=== PATIENT | male | born 1950 | race Two or more races ===

== ENCOUNTER 2017-05-22 23:45 | Inpatient (IN) | payer OTHER ==
[2017-05-23 04:53] LABS: ADD MAN DIFF? NO
[2017-05-23 04:55] LABS: BASOPHILS % 0.5 % (0.0-2.0); EOSINOPHILS # 0.1 10^3/ul (0.0-0.5); EOSINOPHILS % 0.6 % (0.0-7.0); HEMATOCRIT 43.5 % (42.0-52.0); HEMOGLOBIN 14.2 g/dl (14.0-18.0); LYMPHOCYTES % 23.7 % (15.0-51.0); MEAN CORPUSCULAR HEMOGLOBIN 29.8 pg (29.0-33.0); MEAN CORPUSCULAR HGB CONC 32.6 g/dl (32.0-37.0); MEAN CORPUSCULAR VOLUME 91.2 fl (82.0-101.0); MEAN PLATELET VOLUME 11.8 fl (7.4-10.4); MONOCYTE # 0.7 10^3/ul (0.3-0.9); MONOCYTES % 8.8 % (0.0-11.0); NEUTROPHIL # 5.5 10^3/ul (1.6-7.5); NEUTROPHILS % 66.2 % (39.0-77.0); PLATELET COUNT 211 10^3/UL (140-415); RED BLOOD COUNT 4.77 10^6/ul (4.70-6.10)
[2017-05-23 04:55] LABS: WHITE BLOOD COUNT 8.3 10^3/ul (4.8-10.8)
[2017-05-23 05:16] LABS: ALANINE AMINOTRANSFERASE 141 IU/L (13-69); ALBUMIN 4.8 g/dl (3.3-4.9); ALBUMIN/GLOBULIN RATIO 1.17; ALKALINE PHOSPHATASE 215 IU/L (42-121); ANION GAP 18 (8-16); ASPARTATE AMINO TRANSFERASE 152 IU/L (15-46); BILIRUBIN,INDIRECT 0.6 mg/dl (0-1.1); BILIRUBIN,TOTAL 0.6 mg/dl (0.2-1.3); BLOOD UREA NITROGEN 31 mg/dl (7-20); CALCIUM 10.7 mg/dl (8.4-10.2); CARBON DIOXIDE 30 mmol/L (21-31); CHLORIDE 95 mmol/L (97-110); CREATININE 1.36 mg/dl (0.61-1.24); GLUCOSE 125 mg/dl (70-220); LIPASE 157 U/L (23-300); POTASSIUM 4.4 mmol/L (3.5-5.1); SODIUM 139 mmol/L (135-144); TOTAL PROTEIN 8.9 g/dl (6.1-8.1); UR AMORPHOUS CRYSTAL FEW /HPF (NONE SEEN); UR MUCUS FEW /HPF (NONE SEEN); UR RBC 1 /HPF (0-5); UR WBC 5 /HPF (0-5)
[2017-05-23 05:17] LABS: ADD UMIC YES; UR ASCORBIC ACID NEGATIVE (NEGATIVE); UR BILIRUBIN (Dip) NEGATIVE (NEGATIVE); UR BLOOD (Dip) 1+ mg/dL (NEGATIVE); UR CLARITY SLIGHTLY CLOUDY (CLEAR); UR COLOR YELLOW (YELLOW); UR GLUCOSE (Dip) NEGATIVE (NEGATIVE); UR KETONES (Dip) NEGATIVE (NEGATIVE); UR LEUKOCYTE ESTERASE (Dip) TRACE Leu/ul (NEGATIVE); UR NITRITE (Dip) NEGATIVE (NEGATIVE); UR SPECIFIC GRAVITY (Dip) 1.013 (1.003-1.030); UR TOTAL PROTEIN (Dip) NEGATIVE (NEGATIVE); UR UROBILINOGEN (Dip) NEGATIVE (NEGATIVE)
[2017-05-23 05:35] LABS: TROPONIN-I < 0.012 ng/ml (0.00-0.12)
[2017-05-23] MEDS: SOD CHLORIDE 0.9% 1,000 ML IV ×2 (08:39→19:55)
[2017-05-23] MEDS: PIPER-TAZO 3.375 GM IV (PMX) 100 ML IVPB (08:40)
[2017-05-23 09:16] LABS: HAAIG REFLEX REFLEX FILED
[2017-05-23 13:56] LABS: HEPATITIS B CORE ANTIBODY NEGATIVE (NEGATIVE); HEPATITIS C VIRAL ANTIBODY NEGATIVE (NEGATIVE)
[2017-05-23 14:35] LABS: HEPATITIS B SURFACE ANTIGEN NEGATIVE (NEGATIVE)
[2017-05-23] MEDS: CIPROFLOXACIN 400MG/D5W 200 ML IVPB (20:36)
[2017-05-23] MEDS: DOCUSATE SODIUM 100 MG CAP PO (20:36)
[2017-05-23] MEDS: metroNIDAZOLE 500 MG/NS (PMX) 100 ML IVPB (21:41)
[2017-05-23] MEDS ORDERED: PIPER-TAZO 2.25 GM (PMX) 50 ML IVPB (22:00)
[2017-05-23 22:43] LABS: PROSTATE SPECIFIC ANTIGEN 0.2 ng/ml (0.0-4.0)
[2017-05-24] MEDS: SOD CHLORIDE 0.9% 1,000 ML IV ×2 (04:56→15:19)
[2017-05-24 05:02] LABS: ADD MAN DIFF? NO
[2017-05-24 05:12] LABS: WHITE BLOOD COUNT 6.2 10^3/ul (4.8-10.8)
[2017-05-24 05:12] LABS: BASOPHIL # 0.1 10^3/ul (0.0-0.1); EOSINOPHILS # 0.2 10^3/ul (0.0-0.5); EOSINOPHILS % 2.4 % (0.0-7.0); HEMATOCRIT 35.8 % (42.0-52.0); LYMPHOCYTES # 1.4 10^3/ul (0.8-2.9); LYMPHOCYTES % 22.2 % (15.0-51.0); MEAN CORPUSCULAR HEMOGLOBIN 30.5 pg (29.0-33.0); MEAN CORPUSCULAR HGB CONC 33.5 g/dl (32.0-37.0); MEAN CORPUSCULAR VOLUME 91.1 fl (82.0-101.0); MEAN PLATELET VOLUME 11.3 fl (7.4-10.4); MONOCYTE # 0.7 10^3/ul (0.3-0.9); MONOCYTES % 11.6 % (0.0-11.0); NEUTROPHIL # 3.9 10^3/ul (1.6-7.5); NEUTROPHILS % 62.6 % (39.0-77.0); PLATELET COUNT 159 10^3/UL (140-415); RED BLOOD COUNT 3.93 10^6/ul (4.70-6.10); RED CELL DISTRIBUTION WIDTH 11.9 % (11.5-14.5)
[2017-05-24 05:34] LABS: LACTIC ACID 1.2 mmol/L (0.5-2.0)
[2017-05-24 05:35] LABS: PHOSPHORUS 4.3 mg/dl (2.5-4.9)
[2017-05-24 05:38] LABS: ALANINE AMINOTRANSFERASE 99 IU/L (13-69); ALBUMIN 3.6 g/dl (3.3-4.9); ALKALINE PHOSPHATASE 162 IU/L (42-121); ANION GAP 13 (8-16); ASPARTATE AMINO TRANSFERASE 108 IU/L (15-46); BILIRUBIN,INDIRECT 0.5 mg/dl (0-1.1); BILIRUBIN,TOTAL 0.5 mg/dl (0.2-1.3); BLOOD UREA NITROGEN 27 mg/dl (7-20); CALCIUM 9.3 mg/dl (8.4-10.2); CARBON DIOXIDE 28 mmol/L (21-31); CHLORIDE 101 mmol/L (97-110); GLUCOSE 119 mg/dl (70-220); POTASSIUM 4.9 mmol/L (3.5-5.1); SODIUM 137 mmol/L (135-144); TOTAL PROTEIN 6.6 g/dl (6.1-8.1)
[2017-05-24] MEDS: metroNIDAZOLE 500 MG/NS (PMX) 100 ML IVPB ×3 (05:56→22:25)
[2017-05-24] MEDS: DOCUSATE SODIUM 100 MG CAP PO (10:41)
[2017-05-24] MEDS: POLYETHYLENE GLYCOL 17 GM PACKET PO (10:42)
[2017-05-24] MEDS: CIPROFLOXACIN 400MG/D5W 200 ML IVPB ×2 (10:42→21:06)
[2017-05-24] MEDS ORDERED: NA PHOSPHATE/BIPHOS 133 ML ENEMA PR (14:30)
[2017-05-24] MEDS: LACTULOSE 30ML CUP PO ×2 (16:34→21:07)
[2017-05-25] MEDS: LACTULOSE 30ML CUP PO ×4 (01:15→13:00)
[2017-05-25] MEDS: SOD CHLORIDE 0.9% 1,000 ML IV ×2 (01:16→12:01)
[2017-05-25] MEDS: metroNIDAZOLE 500 MG/NS (PMX) 100 ML IVPB ×3 (05:31→22:12)
[2017-05-25 06:23] LABS: ADD MAN DIFF? NO
[2017-05-25 06:29] LABS: BASOPHILS % 0.5 % (0.0-2.0); EOSINOPHILS # 0.1 10^3/ul (0.0-0.5); EOSINOPHILS % 1.8 % (0.0-7.0); HEMOGLOBIN 11.8 g/dl (14.0-18.0); LYMPHOCYTES # 1.6 10^3/ul (0.8-2.9); LYMPHOCYTES % 26.2 % (15.0-51.0); MEAN CORPUSCULAR HEMOGLOBIN 30.1 pg (29.0-33.0); MEAN CORPUSCULAR HGB CONC 32.8 g/dl (32.0-37.0); MEAN CORPUSCULAR VOLUME 91.8 fl (82.0-101.0); MEAN PLATELET VOLUME 12.2 fl (7.4-10.4); MONOCYTE # 0.7 10^3/ul (0.3-0.9); MONOCYTES % 11.5 % (0.0-11.0); NEUTROPHIL # 3.6 10^3/ul (1.6-7.5); NEUTROPHILS % 59.7 % (39.0-77.0); PLATELET COUNT 155 10^3/UL (140-415); RED BLOOD COUNT 3.92 10^6/ul (4.70-6.10); RED CELL DISTRIBUTION WIDTH 12.1 % (11.5-14.5)
[2017-05-25 06:29] LABS: WHITE BLOOD COUNT 6.1 10^3/ul (4.8-10.8)
[2017-05-25 07:01] LABS: ALANINE AMINOTRANSFERASE 104 IU/L (13-69); ALBUMIN 3.5 g/dl (3.3-4.9); ALKALINE PHOSPHATASE 175 IU/L (42-121); ANION GAP 13 (8-16); ASPARTATE AMINO TRANSFERASE 115 IU/L (15-46); BILIRUBIN,INDIRECT 0.4 mg/dl (0-1.1); BILIRUBIN,TOTAL 0.4 mg/dl (0.2-1.3); BLOOD UREA NITROGEN 23 mg/dl (7-20); CALCIUM 9.3 mg/dl (8.4-10.2); CARBON DIOXIDE 26 mmol/L (21-31); CHLORIDE 103 mmol/L (97-110); GLUCOSE 135 mg/dl (70-220); POTASSIUM 4.2 mmol/L (3.5-5.1); SODIUM 138 mmol/L (135-144); TOTAL PROTEIN 6.4 g/dl (6.1-8.1)
[2017-05-25] MEDS: DOCUSATE SODIUM 100 MG CAP PO (09:15)
[2017-05-25] MEDS: CIPROFLOXACIN 400MG/D5W 200 ML IVPB ×2 (09:15→21:00)
[2017-05-25] MEDS: POLYETHYLENE GLYCOL 17 GM PACKET PO (09:15)
[2017-05-25] MEDS: IOHEXOL 14.3 MG(I)/ML (ADULT) BTL PO (14:00)
[2017-05-25] MEDS: BISACODYL (EC) 5 MG TAB PO (15:07)
[2017-05-25] MEDS: IOHEXOL 300MG/ML 150 ML BTL (17:32)
[2017-05-25] MEDS: SOD CHLORIDE 0.9% 100 ML (17:32)
[2017-05-25] MEDS: POLYETHYLENE GLYCOL 3350 119 GM POWDER PO (20:49)
[2017-05-25] MEDS: MAGNESIUM CITRATE 300 ML BTL PO (20:49)
[2017-05-25] MEDS: TAMSULOSIN (SR) 0.4 MG CAP PO (20:59)
[2017-05-25] MEDS: LATANOPROST 0.005% 2.5 ML OPH BOTH EYES (21:00)
[2017-05-26] MEDS: SOD CHLORIDE 0.9% 1,000 ML IV ×3 (01:26→11:29)
[2017-05-26] MEDS: metroNIDAZOLE 500 MG/NS (PMX) 100 ML IVPB ×3 (06:17→22:22)
[2017-05-26 06:27] LABS: ADD MAN DIFF? NO
[2017-05-26 06:30] LABS: WHITE BLOOD COUNT 6.1 10^3/ul (4.8-10.8)
[2017-05-26 06:30] LABS: BASOPHILS % 0.5 % (0.0-2.0); EOSINOPHILS # 0.1 10^3/ul (0.0-0.5); EOSINOPHILS % 1.5 % (0.0-7.0); HEMATOCRIT 35.9 % (42.0-52.0); HEMOGLOBIN 11.9 g/dl (14.0-18.0); LYMPHOCYTES # 1.2 10^3/ul (0.8-2.9); MEAN CORPUSCULAR HEMOGLOBIN 30.4 pg (29.0-33.0); MEAN CORPUSCULAR HGB CONC 33.1 g/dl (32.0-37.0); MEAN CORPUSCULAR VOLUME 91.6 fl (82.0-101.0); MEAN PLATELET VOLUME 12.4 fl (7.4-10.4); MONOCYTE # 0.6 10^3/ul (0.3-0.9); MONOCYTES % 9.4 % (0.0-11.0); NEUTROPHIL # 4.2 10^3/ul (1.6-7.5); NEUTROPHILS % 69.3 % (39.0-77.0); PLATELET COUNT 163 10^3/UL (140-415); RED BLOOD COUNT 3.92 10^6/ul (4.70-6.10); RED CELL DISTRIBUTION WIDTH 12.3 % (11.5-14.5)
[2017-05-26] MEDS: DOCUSATE SODIUM 100 MG CAP PO (08:47)
[2017-05-26] MEDS: CIPROFLOXACIN 400MG/D5W 200 ML IVPB ×2 (08:47→20:39)
[2017-05-26] MEDS: POLYETHYLENE GLYCOL 17 GM PACKET PO (08:47)
[2017-05-26] MEDS: ONDANSETRON 4 MG INJ IV ×2 (09:26→18:45)
[2017-05-26] MEDS: FAMOTIDINE 20 MG INJ IV ×2 (09:26→20:39)
[2017-05-26] MEDS: CALCIUM CARBONATE 500 MG CHEW TAB PO ×2 (12:40→17:20)
[2017-05-26] MEDS: POLYETHYLENE GLYCOL 3350 119 GM POWDER PO (17:20)
[2017-05-26] MEDS: BISACODYL (EC) 5 MG TAB PO (17:20)
[2017-05-26] MEDS: ACETAMINOPHEN 325 MG TAB PO (20:38)
[2017-05-26] MEDS: [UNRECOGNIZED DRUG - OTHER] BOTH EYES (20:38)
[2017-05-26] MEDS: TAMSULOSIN (SR) 0.4 MG CAP PO (20:38)
[2017-05-27] MEDS: SOD CHLORIDE 0.9% 1,000 ML IV ×2 (00:37→13:23)
[2017-05-27 05:36] LABS: ADD MAN DIFF? NO
[2017-05-27 05:37] LABS: ABNORMAL IP MESSAGE 1; BASOPHILS % 0.4 % (0.0-2.0); EOSINOPHILS % 0.4 % (0.0-7.0); HEMATOCRIT 33.8 % (42.0-52.0); HEMOGLOBIN 11.3 g/dl (14.0-18.0); LYMPHOCYTES # 0.5 10^3/ul (0.8-2.9); MEAN CORPUSCULAR HEMOGLOBIN 30.2 pg (29.0-33.0); MEAN CORPUSCULAR HGB CONC 33.4 g/dl (32.0-37.0); MEAN CORPUSCULAR VOLUME 90.4 fl (82.0-101.0); MEAN PLATELET VOLUME 12.3 fl (7.4-10.4); MONOCYTE # 0.5 10^3/ul (0.3-0.9); MONOCYTES % 11.4 % (0.0-11.0); NEUTROPHIL # 3.5 10^3/ul (1.6-7.5); NEUTROPHILS % 76.4 % (39.0-77.0); PLATELET COUNT 146 10^3/UL (140-415); POSITIVE DIFF @See below; RED BLOOD COUNT 3.74 10^6/ul (4.70-6.10); RED CELL DISTRIBUTION WIDTH 12.5 % (11.5-14.5)
[2017-05-27 05:37] LABS: WHITE BLOOD COUNT 4.6 10^3/ul (4.8-10.8)
[2017-05-27] MEDS: metroNIDAZOLE 500 MG/NS (PMX) 100 ML IVPB ×3 (06:07→21:35)
[2017-05-27 06:09] LABS: ANION GAP 13 (8-16); BLOOD UREA NITROGEN 11 mg/dl (7-20); CARBON DIOXIDE 24 mmol/L (21-31); CHLORIDE 104 mmol/L (97-110); CREATININE 1.15 mg/dl (0.61-1.24); GLUCOSE 136 mg/dl (70-220); MAGNESIUM 1.6 mg/dl (1.7-2.5); POTASSIUM 3.9 mmol/L (3.5-5.1); SODIUM 137 mmol/L (135-144)
[2017-05-27] MEDS: DOCUSATE SODIUM 100 MG CAP PO (08:07)
[2017-05-27] MEDS: FAMOTIDINE 20 MG INJ IV ×2 (08:07→21:33)
[2017-05-27] MEDS: POLYETHYLENE GLYCOL 17 GM PACKET PO (08:07)
[2017-05-27] MEDS: CIPROFLOXACIN 400MG/D5W 200 ML IVPB ×2 (08:12→21:34)
[2017-05-27] MEDS: ONDANSETRON 4 MG INJ IV ×2 (08:25→15:52)
[2017-05-27] MEDS: CALCIUM CARBONATE 500 MG CHEW TAB PO ×3 (09:26→18:55)
[2017-05-27] MEDS: [UNRECOGNIZED DRUG - OTHER] BOTH EYES ×2 (09:28→21:33)
[2017-05-27] MEDS: MAGNESIUM SULFATE 2 GM/50 ML 50 ML IVPB (13:11)
[2017-05-27] MEDS ORDERED: ONDANSETRON 4 MG INJ IV (19:00)
[2017-05-27] MEDS ORDERED: FENTAnyl 50 MCG/ML VIAL IV ×3 (19:00)
[2017-05-27] MEDS ORDERED: LABETALOL HCL 20MG INJ IV (19:00)
[2017-05-27] MEDS ORDERED: MIDAZOLAM 1 MG/ML 2 ML INJ IV (19:00)
[2017-05-27] MEDS ORDERED: METOCLOPRAMIDE 10 MG INJ IV (19:00)
[2017-05-27] MEDS ORDERED: DIPHENHYDRAMINE 50 MG INJ IV (19:00)
[2017-05-27] MEDS ORDERED: OXYCODONE/ACETAMINOPHEN (5/325) TAB PO ×2 (19:00)
[2017-05-27] MEDS ORDERED: MEPERIDINE 25 MG INJ IV (19:00)
[2017-05-27] MEDS ORDERED: hydrALAzine 20 MG INJ IV (19:00)
[2017-05-27] MEDS ORDERED: EPHEDrine SULFATE 50 MG/5 ML SYG IV (19:00)
[2017-05-27] MEDS: TAMSULOSIN (SR) 0.4 MG CAP PO (21:34)
[2017-05-27] MEDS: PROPOFOL 20 ML (23:12)
[2017-05-28] MEDS: SOD CHLORIDE 0.9% 1,000 ML IV ×2 (03:00→13:00)
[2017-05-28] MEDS: metroNIDAZOLE 500 MG/NS (PMX) 100 ML IVPB (05:40)
[2017-05-28 05:44] LABS: ADD MAN DIFF? NO
[2017-05-28 05:59] LABS: BASOPHILS % 0.4 % (0.0-2.0); EOSINOPHILS % 0.4 % (0.0-7.0); HEMATOCRIT 32.6 % (42.0-52.0); HEMOGLOBIN 10.9 g/dl (14.0-18.0); LYMPHOCYTES # 1.1 10^3/ul (0.8-2.9); LYMPHOCYTES % 23.3 % (15.0-51.0); MEAN CORPUSCULAR HEMOGLOBIN 30.3 pg (29.0-33.0); MEAN CORPUSCULAR HGB CONC 33.4 g/dl (32.0-37.0); MEAN CORPUSCULAR VOLUME 90.6 fl (82.0-101.0); MEAN PLATELET VOLUME 12.5 fl (7.4-10.4); MONOCYTE # 0.8 10^3/ul (0.3-0.9); MONOCYTES % 15.8 % (0.0-11.0); NEUTROPHIL # 2.9 10^3/ul (1.6-7.5); NEUTROPHILS % 59.7 % (39.0-77.0); PLATELET COUNT 143 10^3/UL (140-415); RED CELL DISTRIBUTION WIDTH 12.5 % (11.5-14.5)
[2017-05-28 05:59] LABS: WHITE BLOOD COUNT 4.9 10^3/ul (4.8-10.8)
[2017-05-28 06:32] LABS: ANION GAP 10 (8-16); BLOOD UREA NITROGEN 11 mg/dl (7-20); CALCIUM 8.6 mg/dl (8.4-10.2); CARBON DIOXIDE 27 mmol/L (21-31); CHLORIDE 103 mmol/L (97-110); CREATININE 1.21 mg/dl (0.61-1.24); GLUCOSE 124 mg/dl (70-220); POTASSIUM 3.9 mmol/L (3.5-5.1); SODIUM 136 mmol/L (135-144)
[2017-05-28 06:41] LABS: MAGNESIUM 1.9 mg/dl (1.7-2.5)
[2017-05-28] MEDS: DOCUSATE SODIUM 100 MG CAP PO (08:33)
[2017-05-28] MEDS: CIPROFLOXACIN 400MG/D5W 200 ML IVPB (08:33)
[2017-05-28] MEDS: POLYETHYLENE GLYCOL 17 GM PACKET PO (08:34)
[2017-05-28] MEDS: FAMOTIDINE 20 MG INJ IV ×2 (08:34→20:36)
[2017-05-28] MEDS: ONDANSETRON 4 MG INJ IV (08:34)
[2017-05-28] MEDS: GUAIFENESIN/DM 5ML CUP PO ×3 (09:24→20:35)
[2017-05-28] MEDS: CALCIUM CARBONATE 500 MG CHEW TAB PO ×3 (09:24→18:09)
[2017-05-28] MEDS: SENNA TAB PO ×2 (12:39→20:35)
[2017-05-28 13:33] LABS: ANA SCREEN NEGATIVE (NEGATIVE); MITOCHONDRIAL TB NEGATIVE (NEGATIVE); SMOOTH MUSCLE AB SCREEN NEGATIVE (NEGATIVE)
[2017-05-28] MEDS: ACETAMINOPHEN 325 MG TAB PO ×2 (17:19→23:17)
[2017-05-28] MEDS: TAMSULOSIN (SR) 0.4 MG CAP PO (20:35)
[2017-05-28] MEDS: [UNRECOGNIZED DRUG - OTHER] BOTH EYES (20:36)
[2017-05-29] MEDS: AL HYDROX/MG HYDROX/SIMETH 30 ML CUP PO (06:26)
[2017-05-29] MEDS: CALCIUM CARBONATE 500 MG CHEW TAB PO ×3 (09:30→18:20)
[2017-05-29] MEDS: GUAIFENESIN/DM 5ML CUP PO (09:30)
[2017-05-29] MEDS: SENNA TAB PO ×2 (09:31→20:22)
[2017-05-29] MEDS: FAMOTIDINE 20 MG INJ IV ×2 (09:31→20:22)
[2017-05-29] MEDS: DOCUSATE SODIUM 100 MG CAP PO (09:31)
[2017-05-29] MEDS: POLYETHYLENE GLYCOL 17 GM PACKET PO (09:31)
[2017-05-29 10:15] LABS: ADD MAN DIFF? NO
[2017-05-29 10:19] LABS: WHITE BLOOD COUNT 4.6 10^3/ul (4.8-10.8)
[2017-05-29 10:19] LABS: BASOPHILS % 0.4 % (0.0-2.0); EOSINOPHILS % 0.4 % (0.0-7.0); HEMATOCRIT 34.4 % (42.0-52.0); HEMOGLOBIN 11.6 g/dl (14.0-18.0); LYMPHOCYTES # 0.9 10^3/ul (0.8-2.9); LYMPHOCYTES % 19.1 % (15.0-51.0); MEAN CORPUSCULAR HEMOGLOBIN 30.5 pg (29.0-33.0); MEAN CORPUSCULAR HGB CONC 33.7 g/dl (32.0-37.0); MEAN CORPUSCULAR VOLUME 90.5 fl (82.0-101.0); MEAN PLATELET VOLUME 11.9 fl (7.4-10.4); MONOCYTE # 0.5 10^3/ul (0.3-0.9); MONOCYTES % 11.8 % (0.0-11.0); NEUTROPHIL # 3.1 10^3/ul (1.6-7.5); NEUTROPHILS % 68.1 % (39.0-77.0); PLATELET COUNT 140 10^3/UL (140-415); RED CELL DISTRIBUTION WIDTH 12.7 % (11.5-14.5)
[2017-05-29] MEDS: PROMETHAZINE/CODEINE 5ML CUP PO ×3 (14:55→23:44)
[2017-05-29] MEDS: SOD CHLORIDE 0.9% 100 ML (16:12)
[2017-05-29] MEDS: IODIXANOL LOCM 100 ML BTL (16:13)
[2017-05-29] MEDS: TAMSULOSIN (SR) 0.4 MG CAP PO (20:22)
[2017-05-29] MEDS: [UNRECOGNIZED DRUG - OTHER] BOTH EYES (21:38)
[2017-05-29] MEDS: SOD CHLORIDE 0.9% 1,000 ML IV (21:38)
[2017-05-30 05:39] LABS: ADD MAN DIFF? NO
[2017-05-30 05:43] LABS: BASOPHILS % 0.5 % (0.0-2.0); EOSINOPHILS % 0.5 % (0.0-7.0); HEMATOCRIT 35.1 % (42.0-52.0); LYMPHOCYTES # 1.3 10^3/ul (0.8-2.9); LYMPHOCYTES % 33.3 % (15.0-51.0); MEAN CORPUSCULAR HEMOGLOBIN 30.5 pg (29.0-33.0); MEAN CORPUSCULAR HGB CONC 34.2 g/dl (32.0-37.0); MEAN CORPUSCULAR VOLUME 89.1 fl (82.0-101.0); MEAN PLATELET VOLUME 11.5 fl (7.4-10.4); MONOCYTE # 0.5 10^3/ul (0.3-0.9); MONOCYTES % 13.3 % (0.0-11.0); NEUTROPHIL # 2.1 10^3/ul (1.6-7.5); NEUTROPHILS % 52.1 % (39.0-77.0); PLATELET COUNT 135 10^3/UL (140-415); POSITIVE DIFF @See below; RED BLOOD COUNT 3.94 10^6/ul (4.70-6.10); RED CELL DISTRIBUTION WIDTH 12.7 % (11.5-14.5)
[2017-05-30 06:39] LABS: ALANINE AMINOTRANSFERASE 128 IU/L (13-69); ALBUMIN 3.3 g/dl (3.3-4.9); ALBUMIN/GLOBULIN RATIO 1.26; ALKALINE PHOSPHATASE 274 IU/L (42-121); ANION GAP 11 (8-16); ASPARTATE AMINO TRANSFERASE 211 IU/L (15-46); BILIRUBIN,INDIRECT 0.1 mg/dl (0-1.1); BILIRUBIN,TOTAL 0.1 mg/dl (0.2-1.3); BLOOD UREA NITROGEN 14 mg/dl (7-20); CALCIUM 8.5 mg/dl (8.4-10.2); CARBON DIOXIDE 28 mmol/L (21-31); CHLORIDE 100 mmol/L (97-110); CREATININE 1.15 mg/dl (0.61-1.24); GLUCOSE 123 mg/dl (70-220); SODIUM 135 mmol/L (135-144); TOTAL PROTEIN 5.9 g/dl (6.1-8.1)
[2017-05-30] MEDS: FAMOTIDINE 20 MG INJ IV ×2 (08:25→20:04)
[2017-05-30] MEDS: CALCIUM CARBONATE 500 MG CHEW TAB PO ×4 (08:27→18:16)
[2017-05-30] MEDS: POLYETHYLENE GLYCOL 17 GM PACKET PO (08:31)
[2017-05-30] MEDS: DOCUSATE SODIUM 100 MG CAP PO (08:31)
[2017-05-30] MEDS: SENNA TAB PO ×2 (08:31→20:05)
[2017-05-30 10:51] LABS: INR 1.19; PROTIME 15.3 Sec (11.9-14.9); PT RATIO 1.2
[2017-05-30 10:52] LABS: PARTIAL THROMBOPLASTIN TIME 32.5 Sec (25.0-35.0)
[2017-05-30] MEDS: SOD CHLORIDE 0.9% 1,000 ML IV (11:48)
[2017-05-30] MEDS: DIPHENHYDRAMINE 50 MG INJ (13:16)
[2017-05-30] MEDS: FENTAnyl 50 MCG/ML VIAL (13:17)
[2017-05-30] MEDS: PROMETHAZINE/CODEINE 5ML CUP PO ×2 (15:07→20:05)
[2017-05-30 15:59] LABS: ALPHA FETOPROTEIN 1.94 IU/L (0.00-7.21)
[2017-05-30] MEDS: ACETAMINOPHEN 325 MG TAB PO (20:04)
[2017-05-30] MEDS: [UNRECOGNIZED DRUG - OTHER] BOTH EYES (20:05)
[2017-05-30] MEDS: TAMSULOSIN (SR) 0.4 MG CAP PO (20:05)
[2017-05-31] MEDS: SOD CHLORIDE 0.9% 1,000 ML IV ×2 (02:06→18:21)
[2017-05-31] MEDS: ONDANSETRON 4 MG INJ IV (08:40)
[2017-05-31] MEDS: PROMETHAZINE/CODEINE 5ML CUP PO ×3 (08:40→23:28)
[2017-05-31] MEDS: POLYETHYLENE GLYCOL 17 GM PACKET PO (08:41)
[2017-05-31] MEDS: FAMOTIDINE 20 MG INJ IV ×2 (08:41→20:49)
[2017-05-31] MEDS: CALCIUM CARBONATE 500 MG CHEW TAB PO ×3 (08:41→19:02)
[2017-05-31] MEDS: SENNA TAB PO ×2 (08:41→20:51)
[2017-05-31] MEDS: DOCUSATE SODIUM 100 MG CAP PO (08:41)
[2017-05-31] MEDS: [UNRECOGNIZED DRUG - OTHER] BOTH EYES (20:48)
[2017-05-31] MEDS: TAMSULOSIN (SR) 0.4 MG CAP PO (20:51)
[2017-06-01] MEDS: SOD CHLORIDE 0.9% 1,000 ML IV ×2 (05:52→20:43)
[2017-06-01] MEDS: POLYETHYLENE GLYCOL 17 GM PACKET PO (07:57)
[2017-06-01] MEDS: DOCUSATE SODIUM 100 MG CAP PO (07:58)
[2017-06-01] MEDS: ONDANSETRON 4 MG INJ IV (07:58)
[2017-06-01] MEDS: SENNA TAB PO ×2 (07:58→20:42)
[2017-06-01] MEDS: FAMOTIDINE 20 MG INJ IV ×2 (07:58→20:42)
[2017-06-01] MEDS: CALCIUM CARBONATE 500 MG CHEW TAB PO ×3 (07:58→17:45)
[2017-06-01] MEDS: PROMETHAZINE/CODEINE 5ML CUP PO ×4 (08:09→22:59)
[2017-06-01] MEDS: TAMSULOSIN (SR) 0.4 MG CAP PO (20:42)
[2017-06-01] MEDS: [UNRECOGNIZED DRUG - OTHER] BOTH EYES (20:42)
[2017-06-02] MEDS: PROMETHAZINE/CODEINE 5ML CUP PO ×4 (03:29→20:20)
[2017-06-02] MEDS: ONDANSETRON 4 MG INJ IV ×3 (03:29→17:56)
[2017-06-02] MEDS: AL HYDROX/MG HYDROX/SIMETH 30 ML CUP PO (04:22)
[2017-06-02] MEDS: CALCIUM CARBONATE 500 MG CHEW TAB PO ×3 (08:51→17:54)
[2017-06-02] MEDS: DOCUSATE SODIUM 100 MG CAP PO (08:51)
[2017-06-02] MEDS: SENNA TAB PO ×2 (08:51→20:59)
[2017-06-02] MEDS: FAMOTIDINE 20 MG INJ IV ×2 (08:51→20:59)
[2017-06-02] MEDS: POLYETHYLENE GLYCOL 17 GM PACKET PO (08:51)
[2017-06-02] MEDS: SOD CHLORIDE 0.9% 1,000 ML IV (11:18)
[2017-06-02] MEDS: [UNRECOGNIZED DRUG - OTHER] BOTH EYES (20:59)
[2017-06-02] MEDS: TAMSULOSIN (SR) 0.4 MG CAP PO (20:59)
[2017-06-03] MEDS: SOD CHLORIDE 0.9% 1,000 ML IV ×3 (00:46→20:28)
[2017-06-03] MEDS: POLYETHYLENE GLYCOL 17 GM PACKET PO (09:14)
[2017-06-03] MEDS: DOCUSATE SODIUM 100 MG CAP PO (09:14)
[2017-06-03] MEDS: SENNA TAB PO ×2 (09:14→20:24)
[2017-06-03] MEDS: PROMETHAZINE/CODEINE 5ML CUP PO ×4 (09:14→23:40)
[2017-06-03] MEDS: CALCIUM CARBONATE 500 MG CHEW TAB PO ×3 (09:14→18:00)
[2017-06-03] MEDS: FAMOTIDINE 20 MG INJ IV ×2 (09:14→20:23)
[2017-06-03 17:25] LABS: INR 1.12; PROTIME 14.6 Sec (11.9-14.9); PT RATIO 1.1
[2017-06-03] MEDS: [UNRECOGNIZED DRUG - OTHER] BOTH EYES (20:22)
[2017-06-03] MEDS: TAMSULOSIN (SR) 0.4 MG CAP PO (20:29)
[2017-06-04] MEDS: CALCIUM CARBONATE 500 MG CHEW TAB PO ×3 (09:29→18:22)
[2017-06-04] MEDS: SENNA TAB PO ×2 (09:29→20:35)
[2017-06-04] MEDS: FAMOTIDINE 20 MG INJ IV ×2 (09:29→20:35)
[2017-06-04] MEDS: ALLOPURINOL 300 MG TAB NGT (09:29)
[2017-06-04] MEDS: POLYETHYLENE GLYCOL 17 GM PACKET PO (09:29)
[2017-06-04] MEDS: DOCUSATE SODIUM 100 MG CAP PO (09:29)
[2017-06-04] MEDS: SOD CHLORIDE 0.9% 500 ML (10:30)
[2017-06-04] MEDS: CEFAZOLIN 1 GM/50 ML (PMX) 50 ML IVPB (11:00)
[2017-06-04] MEDS: FENTAnyl 50 MCG/ML VIAL (11:10)
[2017-06-04] MEDS: MIDAZOLAM 1 MG/ML 2 ML INJ (11:11)
[2017-06-04] MEDS: LIDOCAINE 1%/EPI 30 ML INJ (11:16)
[2017-06-04] MEDS: HEPARIN 1000 UNITS/ML 10 ML INJ (11:20)
[2017-06-04] MEDS: POLYMYXIN/BACITRACIN 1L IRRIG IRR (11:30)
[2017-06-04] MEDS ORDERED: MAGNESIUM HYDROXIDE 30ML CUP PO (13:30)
[2017-06-04] MEDS: MAGNESIUM HYDROXIDE 30ML CUP PO (13:40)
[2017-06-04] MEDS: PROMETHAZINE/CODEINE 5ML CUP PO ×3 (14:10→22:22)
[2017-06-04] MEDS: [UNRECOGNIZED DRUG - OTHER] BOTH EYES (20:34)
[2017-06-04] MEDS: TAMSULOSIN (SR) 0.4 MG CAP PO (20:35)
[2017-06-04] MEDS: LACTULOSE 30ML CUP PO (20:35)
[2017-06-04] MEDS: SOD CHLORIDE 0.9% 1,000 ML IV (22:21)
[2017-06-05] MEDS: LACTULOSE 30ML CUP PO ×6 (00:33→20:40)
[2017-06-05 05:51] LABS: ADD MAN DIFF? NO
[2017-06-05 05:59] LABS: BASOPHILS % 0.2 % (0.0-2.0); EOSINOPHILS # 0.1 10^3/ul (0.0-0.5); EOSINOPHILS % 1.2 % (0.0-7.0); HEMATOCRIT 33.1 % (42.0-52.0); HEMOGLOBIN 10.9 g/dl (14.0-18.0); LYMPHOCYTES # 1.2 10^3/ul (0.8-2.9); LYMPHOCYTES % 21.2 % (15.0-51.0); MEAN CORPUSCULAR HEMOGLOBIN 29.9 pg (29.0-33.0); MEAN CORPUSCULAR HGB CONC 32.9 g/dl (32.0-37.0); MEAN CORPUSCULAR VOLUME 90.9 fl (82.0-101.0); MEAN PLATELET VOLUME 12.2 fl (7.4-10.4); MONOCYTE # 0.6 10^3/ul (0.3-0.9); MONOCYTES % 10.2 % (0.0-11.0); NEUTROPHIL # 3.9 10^3/ul (1.6-7.5); NEUTROPHILS % 66.5 % (39.0-77.0); PLATELET COUNT 197 10^3/UL (140-415); RED BLOOD COUNT 3.64 10^6/ul (4.70-6.10); RED CELL DISTRIBUTION WIDTH 13.1 % (11.5-14.5)
[2017-06-05 05:59] LABS: WHITE BLOOD COUNT 5.9 10^3/ul (4.8-10.8)
[2017-06-05 06:30] LABS: ANION GAP 11 (8-16); BLOOD UREA NITROGEN 16 mg/dl (7-20); CALCIUM 8.5 mg/dl (8.4-10.2); CARBON DIOXIDE 29 mmol/L (21-31); CHLORIDE 101 mmol/L (97-110); CREATININE 0.93 mg/dl (0.61-1.24); GLUCOSE 132 mg/dl (70-220); POTASSIUM 4.3 mmol/L (3.5-5.1); SODIUM 137 mmol/L (135-144)
[2017-06-05] MEDS: POLYETHYLENE GLYCOL 17 GM PACKET PO (09:09)
[2017-06-05] MEDS: ALLOPURINOL 300 MG TAB NGT (09:09)
[2017-06-05] MEDS: FAMOTIDINE 20 MG INJ IV ×2 (09:09→20:40)
[2017-06-05] MEDS: CALCIUM CARBONATE 500 MG CHEW TAB PO ×3 (09:09→18:30)
[2017-06-05] MEDS: SENNA TAB PO ×2 (09:09→20:40)
[2017-06-05] MEDS: DOCUSATE SODIUM 100 MG CAP PO (09:09)
[2017-06-05] MEDS: PROMETHAZINE/CODEINE 5ML CUP PO ×3 (09:17→21:06)
[2017-06-05] MEDS: MAGNESIUM CITRATE 300 ML BTL PO (09:57)
[2017-06-05] MEDS: SOD CHLORIDE 0.9% 1,000 ML IV ×3 (13:30→23:30)
[2017-06-05] MEDS ORDERED: METHYLPREDNISOLONE 125 MG INJ IV (15:00)
[2017-06-05] MEDS ORDERED: DIPHENHYDRAMINE 50 MG INJ IV (15:00)
[2017-06-05] MEDS: ONDANSETRON INJ 16 MG, DEXAMETHASONE 4 MG/ML 10 MG, DIPHENHYDRAMINE 25 MG in DEXTROSE 5... IV (16:41)
[2017-06-05] MEDS: SOD CHLORIDE 0.9% IV (17:20)
[2017-06-05] MEDS: CARBOPLATIN IV (17:20)
[2017-06-05] MEDS: ETOPOSIDE IV ×2 (17:30→22:12)
[2017-06-05] MEDS: DEXTROSE 5% IV ×2 (17:30→22:12)
[2017-06-05] MEDS: TAMSULOSIN (SR) 0.4 MG CAP PO (20:34)
[2017-06-05] MEDS: [UNRECOGNIZED DRUG - OTHER] BOTH EYES (21:00)
[2017-06-06] MEDS: PROMETHAZINE/CODEINE 5ML CUP PO ×6 (00:29→21:29)
[2017-06-06] MEDS: [UNRECOGNIZED DRUG - OTHER] BOTH EYES ×2 (00:29→20:20)
[2017-06-06] MEDS: LACTULOSE 30ML CUP PO ×7 (01:00→21:00)
[2017-06-06] MEDS: SOD CHLORIDE 0.9% 1,000 ML IV ×3 (02:30→19:02)
[2017-06-06 05:21] LABS: ADD MAN DIFF? NO
[2017-06-06 05:27] LABS: WHITE BLOOD COUNT 6.1 10^3/ul (4.8-10.8)
[2017-06-06 05:27] LABS: BASOPHILS % 0.2 % (0.0-2.0); EOSINOPHILS % 0.2 % (0.0-7.0); HEMATOCRIT 33.5 % (42.0-52.0); LYMPHOCYTES % 16.6 % (15.0-51.0); MEAN CORPUSCULAR HEMOGLOBIN 29.8 pg (29.0-33.0); MEAN CORPUSCULAR HGB CONC 32.8 g/dl (32.0-37.0); MEAN CORPUSCULAR VOLUME 90.8 fl (82.0-101.0); MEAN PLATELET VOLUME 11.9 fl (7.4-10.4); MONOCYTE # 0.6 10^3/ul (0.3-0.9); MONOCYTES % 9.3 % (0.0-11.0); NEUTROPHIL # 4.5 10^3/ul (1.6-7.5); NEUTROPHILS % 72.9 % (39.0-77.0); PLATELET COUNT 234 10^3/UL (140-415); RED BLOOD COUNT 3.69 10^6/ul (4.70-6.10); RED CELL DISTRIBUTION WIDTH 13.2 % (11.5-14.5)
[2017-06-06] MEDS: FAMOTIDINE 20 MG INJ IV ×2 (09:18→20:21)
[2017-06-06] MEDS: DOCUSATE SODIUM 100 MG CAP PO (09:18)
[2017-06-06] MEDS: ALLOPURINOL 300 MG TAB NGT (09:18)
[2017-06-06] MEDS: SENNA TAB PO ×3 (09:18→21:00)
[2017-06-06] MEDS: CALCIUM CARBONATE 500 MG CHEW TAB PO ×3 (09:18→18:34)
[2017-06-06] MEDS: POLYETHYLENE GLYCOL 17 GM PACKET PO (09:19)
[2017-06-06] MEDS: ONDANSETRON 4 MG INJ IV (09:39)
[2017-06-06] MEDS: DIPHENHYDRAMINE 50 MG INJ IV (17:43)
[2017-06-06] MEDS: ONDANSETRON INJ 16 MG, DEXAMETHASONE 10 MG/ML 10 MG in DEXTROSE 5% 50 ML IVPB (17:44)
[2017-06-06] MEDS: DEXTROSE 5% IV (18:24)
[2017-06-06] MEDS: ETOPOSIDE IV (18:24)
[2017-06-06] MEDS: TAMSULOSIN (SR) 0.4 MG CAP PO ×2 (20:20→21:00)
[2017-06-07] MEDS: SOD CHLORIDE 0.9% 500 ML IV (00:23)
[2017-06-07] MEDS: LACTULOSE 30ML CUP PO ×7 (00:25→21:00)
[2017-06-07 05:09] LABS: ADD MAN DIFF? NO
[2017-06-07 05:16] LABS: ABNORMAL IP MESSAGE 1; BASOPHILS % 0.1 % (0.0-2.0); HEMATOCRIT 30.7 % (42.0-52.0); HEMOGLOBIN 10.3 g/dl (14.0-18.0); LYMPHOCYTES # 0.6 10^3/ul (0.8-2.9); LYMPHOCYTES % 8.1 % (15.0-51.0); MEAN CORPUSCULAR HEMOGLOBIN 30.1 pg (29.0-33.0); MEAN CORPUSCULAR HGB CONC 33.6 g/dl (32.0-37.0); MEAN CORPUSCULAR VOLUME 89.8 fl (82.0-101.0); MEAN PLATELET VOLUME 11.7 fl (7.4-10.4); MONOCYTE # 0.4 10^3/ul (0.3-0.9); MONOCYTES % 5.8 % (0.0-11.0); NEUTROPHILS % 85.3 % (39.0-77.0); PLATELET COUNT 195 10^3/UL (140-415); POSITIVE DIFF @See below; RED BLOOD COUNT 3.42 10^6/ul (4.70-6.10); RED CELL DISTRIBUTION WIDTH 13.1 % (11.5-14.5)
[2017-06-07 05:16] LABS: WHITE BLOOD COUNT 7.1 10^3/ul (4.8-10.8)
[2017-06-07] MEDS: SOD CHLORIDE 0.9% 1,000 ML IV ×2 (05:30→10:54)
[2017-06-07] MEDS: PROMETHAZINE/CODEINE 5ML CUP PO ×3 (07:04→17:13)
[2017-06-07] MEDS: ALLOPURINOL 300 MG TAB NGT (09:28)
[2017-06-07] MEDS: CALCIUM CARBONATE 500 MG CHEW TAB PO ×3 (09:28→18:55)
[2017-06-07] MEDS: SENNA TAB PO ×3 (09:28→21:00)
[2017-06-07] MEDS: DOCUSATE SODIUM 100 MG CAP PO (09:28)
[2017-06-07] MEDS: FAMOTIDINE 20 MG INJ IV ×3 (09:29→21:00)
[2017-06-07] MEDS: POLYETHYLENE GLYCOL 17 GM PACKET PO (09:31)
[2017-06-07] MEDS: DIPHENHYDRAMINE 50 MG INJ IV (18:02)
[2017-06-07] MEDS: ONDANSETRON INJ 16 MG, DEXAMETHASONE 10 MG/ML 10 MG in DEXTROSE 5% 50 ML IVPB (18:02)
[2017-06-07] MEDS: ETOPOSIDE IV (18:37)
[2017-06-07] MEDS: DEXTROSE 5% IV (18:37)
[2017-06-07] MEDS: [UNRECOGNIZED DRUG - OTHER] BOTH EYES (20:46)
[2017-06-07] MEDS: TAMSULOSIN (SR) 0.4 MG CAP PO ×2 (20:47→21:00)
[2017-06-08] MEDS: LACTULOSE 30ML CUP PO ×6 (00:18→21:00)
[2017-06-08] MEDS: SOD CHLORIDE 0.9% 1,000 ML IV ×3 (00:46→20:04)
[2017-06-08] MEDS: ONDANSETRON 4 MG INJ IV (03:20)
[2017-06-08 04:58] LABS: ADD MAN DIFF? NO
[2017-06-08 05:00] LABS: ABNORMAL IP MESSAGE 1; HEMATOCRIT 30.6 % (42.0-52.0); HEMOGLOBIN 10.4 g/dl (14.0-18.0); LYMPHOCYTES # 0.5 10^3/ul (0.8-2.9); LYMPHOCYTES % 7.9 % (15.0-51.0); MEAN CORPUSCULAR HEMOGLOBIN 30.4 pg (29.0-33.0); MEAN CORPUSCULAR VOLUME 89.5 fl (82.0-101.0); MEAN PLATELET VOLUME 11.6 fl (7.4-10.4); MONOCYTE # 0.1 10^3/ul (0.3-0.9); MONOCYTES % 2.3 % (0.0-11.0); NEUTROPHIL # 5.5 10^3/ul (1.6-7.5); NEUTROPHILS % 89.2 % (39.0-77.0); PLATELET COUNT 183 10^3/UL (140-415); POSITIVE DIFF @See below; RED BLOOD COUNT 3.42 10^6/ul (4.70-6.10); RED CELL DISTRIBUTION WIDTH 13.2 % (11.5-14.5)
[2017-06-08 05:00] LABS: WHITE BLOOD COUNT 6.2 10^3/ul (4.8-10.8)
[2017-06-08] MEDS: PROMETHAZINE/CODEINE 5ML CUP PO ×3 (05:36→21:09)
[2017-06-08 05:42] LABS: ANION GAP 9 (8-16); BLOOD UREA NITROGEN 18 mg/dl (7-20); CALCIUM 8.9 mg/dl (8.4-10.2); CARBON DIOXIDE 28 mmol/L (21-31); CHLORIDE 100 mmol/L (97-110); GLUCOSE 144 mg/dl (70-220); POTASSIUM 4.7 mmol/L (3.5-5.1); SODIUM 132 mmol/L (135-144)
[2017-06-08 05:47] LABS: ALANINE AMINOTRANSFERASE 146 IU/L (13-69); ALKALINE PHOSPHATASE 347 IU/L (42-121); ASPARTATE AMINO TRANSFERASE 240 IU/L (15-46); BILIRUBIN,INDIRECT 0.7 mg/dl (0-1.1); BILIRUBIN,TOTAL 0.7 mg/dl (0.2-1.3); TOTAL PROTEIN 6.3 g/dl (6.1-8.1)
[2017-06-08] MEDS: ALLOPURINOL 300 MG TAB NGT (09:09)
[2017-06-08] MEDS: POLYETHYLENE GLYCOL 17 GM PACKET PO (09:09)
[2017-06-08] MEDS: SENNA TAB PO ×2 (09:10→21:00)
[2017-06-08] MEDS: FAMOTIDINE 20 MG INJ IV ×2 (09:10→21:00)
[2017-06-08] MEDS: CALCIUM CARBONATE 500 MG CHEW TAB PO ×3 (09:10→18:11)
[2017-06-08] MEDS: DOCUSATE SODIUM 100 MG CAP PO (09:10)
[2017-06-08] MEDS: [UNRECOGNIZED DRUG - OTHER] BOTH EYES (21:00)
[2017-06-08] MEDS: TAMSULOSIN (SR) 0.4 MG CAP PO (21:02)
[2017-06-09] MEDS: LACTULOSE 30ML CUP PO ×6 (01:00→20:22)
[2017-06-09] MEDS: PROMETHAZINE/CODEINE 5ML CUP PO ×4 (03:52→20:23)
[2017-06-09 05:30] LABS: ADD MAN DIFF? NO
[2017-06-09 05:40] LABS: WHITE BLOOD COUNT 6.4 10^3/ul (4.8-10.8)
[2017-06-09 05:40] LABS: EOSINOPHILS # 0.1 10^3/ul (0.0-0.5); EOSINOPHILS % 0.9 % (0.0-7.0); HEMATOCRIT 30.2 % (42.0-52.0); LYMPHOCYTES # 1.2 10^3/ul (0.8-2.9); LYMPHOCYTES % 18.8 % (15.0-51.0); MEAN CORPUSCULAR HEMOGLOBIN 29.9 pg (29.0-33.0); MEAN CORPUSCULAR HGB CONC 33.1 g/dl (32.0-37.0); MEAN CORPUSCULAR VOLUME 90.1 fl (82.0-101.0); MEAN PLATELET VOLUME 11.7 fl (7.4-10.4); MONOCYTES % 0.6 % (0.0-11.0); NEUTROPHIL # 5.1 10^3/ul (1.6-7.5); NEUTROPHILS % 79.2 % (39.0-77.0); PLATELET COUNT 185 10^3/UL (140-415); RED BLOOD COUNT 3.35 10^6/ul (4.70-6.10); RED CELL DISTRIBUTION WIDTH 12.7 % (11.5-14.5)
[2017-06-09] MEDS: SOD CHLORIDE 0.9% 1,000 ML IV ×2 (06:12→16:11)
[2017-06-09] MEDS: TAMSULOSIN (SR) 0.4 MG CAP PO ×2 (08:48→20:22)
[2017-06-09] MEDS: ALLOPURINOL 300 MG TAB NGT (08:48)
[2017-06-09] MEDS: CALCIUM CARBONATE 500 MG CHEW TAB PO ×3 (08:50→17:22)
[2017-06-09] MEDS: DOCUSATE SODIUM 100 MG CAP PO (08:55)
[2017-06-09] MEDS: FAMOTIDINE 20 MG INJ IV ×2 (08:55→20:22)
[2017-06-09] MEDS: SENNA TAB PO ×2 (08:55→20:22)
[2017-06-09] MEDS: POLYETHYLENE GLYCOL 17 GM PACKET PO (08:55)
[2017-06-09] MEDS: [UNRECOGNIZED DRUG - OTHER] BOTH EYES (20:21)
[2017-06-10] MEDS: SOD CHLORIDE 0.9% 1,000 ML IV ×2 (00:34→12:04)
[2017-06-10] MEDS: LACTULOSE 30ML CUP PO ×6 (01:00→20:44)
[2017-06-10 05:03] LABS: ADD MAN DIFF? NO
[2017-06-10 05:12] LABS: BASOPHILS % 0.2 % (0.0-2.0); EOSINOPHILS # 0.1 10^3/ul (0.0-0.5); EOSINOPHILS % 1.7 % (0.0-7.0); HEMATOCRIT 29.1 % (42.0-52.0); HEMOGLOBIN 9.8 g/dl (14.0-18.0); LYMPHOCYTES # 0.9 10^3/ul (0.8-2.9); LYMPHOCYTES % 19.8 % (15.0-51.0); MEAN CORPUSCULAR HEMOGLOBIN 30.2 pg (29.0-33.0); MEAN CORPUSCULAR HGB CONC 33.7 g/dl (32.0-37.0); MEAN CORPUSCULAR VOLUME 89.5 fl (82.0-101.0); MEAN PLATELET VOLUME 11.4 fl (7.4-10.4); MONOCYTES % 0.6 % (0.0-11.0); NEUTROPHIL # 3.6 10^3/ul (1.6-7.5); NEUTROPHILS % 76.9 % (39.0-77.0); PLATELET COUNT 178 10^3/UL (140-415); RED BLOOD COUNT 3.25 10^6/ul (4.70-6.10); RED CELL DISTRIBUTION WIDTH 12.3 % (11.5-14.5)
[2017-06-10 05:12] LABS: WHITE BLOOD COUNT 4.7 10^3/ul (4.8-10.8)
[2017-06-10] MEDS: CALCIUM CARBONATE 500 MG CHEW TAB PO ×3 (08:50→18:04)
[2017-06-10] MEDS: FAMOTIDINE 20 MG TAB PO ×2 (09:00→20:45)
[2017-06-10] MEDS: POLYETHYLENE GLYCOL 17 GM PACKET PO (09:00)
[2017-06-10] MEDS: SENNA TAB PO ×2 (09:00→20:45)
[2017-06-10] MEDS: DOCUSATE SODIUM 100 MG CAP PO (09:00)
[2017-06-10] MEDS: TAMSULOSIN (SR) 0.4 MG CAP PO ×2 (09:13→20:45)
[2017-06-10] MEDS: ALLOPURINOL 300 MG TAB NGT (09:13)
[2017-06-10] MEDS: PROMETHAZINE/CODEINE 5ML CUP PO ×2 (09:14→20:56)
[2017-06-10] MEDS: ONDANSETRON 4 MG INJ IV ×2 (09:17→21:01)
[2017-06-10] MEDS: ALBUTEROL/IPRATROPIUM (NEB) 3 ML AMP HHN ×3 (12:17→19:53)
[2017-06-10] MEDS: [UNRECOGNIZED DRUG - OTHER] BOTH EYES (20:43)
[2017-06-11] MEDS: LACTULOSE 30ML CUP PO ×4 (00:33→13:00)
[2017-06-11] MEDS: PROMETHAZINE/CODEINE 5ML CUP PO ×2 (00:54→15:23)
[2017-06-11 05:29] LABS: ADD MAN DIFF? NO
[2017-06-11 05:39] LABS: BASOPHILS % 0.8 % (0.0-2.0); EOSINOPHILS % 0.8 % (0.0-7.0); HEMATOCRIT 28.9 % (42.0-52.0); HEMOGLOBIN 9.8 g/dl (14.0-18.0); LYMPHOCYTES # 0.9 10^3/ul (0.8-2.9); LYMPHOCYTES % 23.4 % (15.0-51.0); MEAN CORPUSCULAR HEMOGLOBIN 30.5 pg (29.0-33.0); MEAN CORPUSCULAR HGB CONC 33.9 g/dl (32.0-37.0); MONOCYTES % 0.5 % (0.0-11.0); NEUTROPHIL # 2.8 10^3/ul (1.6-7.5); PLATELET COUNT 171 10^3/UL (140-415); RED BLOOD COUNT 3.21 10^6/ul (4.70-6.10); RED CELL DISTRIBUTION WIDTH 12.1 % (11.5-14.5)
[2017-06-11 05:39] LABS: WHITE BLOOD COUNT 3.9 10^3/ul (4.8-10.8)
[2017-06-11 06:09] LABS: ANION GAP 10 (8-16); BLOOD UREA NITROGEN 14 mg/dl (7-20); CALCIUM 8.4 mg/dl (8.4-10.2); CARBON DIOXIDE 32 mmol/L (21-31); CHLORIDE 99 mmol/L (97-110); GLUCOSE 139 mg/dl (70-220); POTASSIUM 4.6 mmol/L (3.5-5.1); SODIUM 136 mmol/L (135-144)
[2017-06-11] MEDS: ONDANSETRON 4 MG INJ IV (08:19)
[2017-06-11] MEDS: FAMOTIDINE 20 MG TAB PO (08:19)
[2017-06-11] MEDS: SENNA TAB PO (09:34)
[2017-06-11] MEDS: DOCUSATE SODIUM 100 MG CAP PO (09:35)
[2017-06-11] MEDS: TAMSULOSIN (SR) 0.4 MG CAP PO (09:35)
[2017-06-11] MEDS: POLYETHYLENE GLYCOL 17 GM PACKET PO (09:35)
[2017-06-11] MEDS: ALLOPURINOL 300 MG TAB NGT (09:35)
[2017-06-11] MEDS: CALCIUM CARBONATE 500 MG CHEW TAB PO ×2 (09:35→12:40)
[2017-06-11] MEDS: AL HYDROX/MG HYDROX/SIMETH 30 ML CUP PO (10:58)
[2017-06-11 11:18] LABS: URIC ACID 2.7 mg/dl (3.1-7.9)
== END 2017-06-11 17:55 | disposition home health service (06) | DRG 844 ==
LOC: MS1 05-26 10:20 → E/R 23:45 → MS1 05-24 23:04 → MS3 05-23 08:48
PROC: 0DBP8ZX Excision of Rectum, Via Natural or Artificial Opening Endoscopic, Diagnostic (ICD-10-PCS; principal; 2017-05-27 17:05)
PROC: 3E03305 Introduction of Other Antineoplastic into Peripheral Vein, Percutaneous Approach (ICD-10-PCS; 2017-05-27 17:05)
PROC: 0FB13ZX Excision of Right Lobe Liver, Percutaneous Approach, Diagnostic (ICD-10-PCS; 2017-05-27 17:05)
PROC: CW1N1ZZ Planar Nuclear Medicine Imaging of Whole Body using Technetium 99m (Tc-99m) (ICD-10-PCS; 2017-05-27 17:05)
PROC: 0JH60XZ Insertion of Tunneled Vascular Access Device into Chest Subcutaneous Tissue and Fascia, Open Approach (ICD-10-PCS; 2017-05-27 17:05)
PROC: 02HV33Z Insertion of Infusion Device into Superior Vena Cava, Percutaneous Approach (ICD-10-PCS; 2017-05-27 17:05)
PROC: B548ZZA Ultrasonography of Superior Vena Cava, Guidance (ICD-10-PCS; 2017-05-27 17:05)
DX: C7A.1 Malignant poorly differentiated neuroendocrine tumors (principal); N39.0 Urinary tract infection, site not specified; N17.9 Acute kidney failure, unspecified; C7B.8 Other secondary neuroendocrine tumors; R18.8 Other ascites; K57.32 Diverticulitis of large intestine without perforation or abscess without bleeding; K76.0 Fatty (change of) liver, not elsewhere classified; N13.8 Other obstructive and reflux uropathy; B96.89 Other specified bacterial agents as the cause of diseases classified elsewhere; Z85.46 Personal history of malignant neoplasm of prostate; N40.0 Benign prostatic hyperplasia without lower urinary tract symptoms; N32.89 Other specified disorders of bladder; K59.00 Constipation, unspecified; F32.9 Major depressive disorder, single episode, unspecified; Z92.21 Personal history of antineoplastic chemotherapy; K82.8 Other specified diseases of gallbladder; R33.9 Retention of urine, unspecified
CPT/HCPCS: 36415; 36561; 70552; 71045; 71260; 72170; 74176; 74177; 76942; 77012; 78306; 80048; 80053; 80076; 81001; 82105; 82378; 82787; 83605; 83690; 83735; 84100; 84153; 84154; 84484; 84560; 85025; 85610; 85730; 86038; 86255; 86704; 86709; 86803; 87040; 87086; 87340; 88307; 88313; 88341; 88342; 93005; 93306; 94640; 94664; 96374; 97116; 97162; 97530; 99285-25; A9503; J9045; J9181

== ENCOUNTER 2017-11-01 10:30 | Inpatient (IN) | payer OTHER ==
[~2017-11-01 10:30] MED LIST: EPHEDrine SULFATE 50 MG/5 ML SYG; INDIGOTINDISULFONATE 0.8% 5 ML INJ
[2017-11-01] MEDS ORDERED: CEFTRIAXONE 1 GM/50 ML (PMX) 50 ML IVPB (11:00)
[2017-11-01] MEDS ORDERED: LIDOCAINE 2% (SDV) 5 ML INJ (12:25)
[2017-11-01] MEDS ORDERED: PROPOFOL 20 ML (12:25)
[2017-11-01] MEDS ORDERED: MIDAZOLAM 1 MG/ML 2 ML INJ (12:25)
[2017-11-01] MEDS ORDERED: ONDANSETRON 4 MG INJ (13:09)
[2017-11-01] MEDS ORDERED: DEXAMETHASONE 4 MG/ML 1 ML INJ (13:10)
[2017-11-01] MEDS ORDERED: FAMOTIDINE 20 MG INJ (13:10)
[2017-11-01] MEDS ORDERED: EPHEDrine 25 MG/5 ML SYG (13:51)
[2017-11-01] MEDS ORDERED: ERTAPENEM SODIUM 1 GM in SOD CHLORIDE 0.9% 100 ML IVPB (15:00)
[2017-11-01] MEDS ORDERED: DOCUSATE SODIUM 100 MG CAP PO (15:00)
[2017-11-01] MEDS: HYDROCODONE/APAP (5/325) TAB PO (15:26)
[2017-11-01] MEDS: ERTAPENEM SODIUM 1 GM in SOD CHLORIDE 0.9% 100 ML IVPB (15:43)
[2017-11-01] MEDS ORDERED: HYDROmorphONE 1 MG/5 ML IV SYRINGE IV (16:00)
[2017-11-01] MEDS ORDERED: DIPHENHYDRAMINE 50 MG INJ IV (16:00)
[2017-11-01] MEDS ORDERED: FENTAnyl 50 MCG/ML VIAL IV (16:00)
[2017-11-01] MEDS ORDERED: PROCHLORPERAZINE 10 MG INJ IV (16:00)
[2017-11-01] MEDS ORDERED: MEPERIDINE 25 MG INJ IV (16:00)
[2017-11-01] MEDS: ONDANSETRON 4 MG INJ IV (16:05)
[2017-11-01] MEDS: HYDROmorphONE 1 MG/5 ML IV SYRINGE IV ×3 (16:06→17:13)
[2017-11-01] MEDS: LATANOPROST 0.005% 2.5 ML OPH BOTH EYES (22:14)
[2017-11-01] MEDS: TOLTERODINE 1 MG TAB PO (22:14)
[2017-11-01] MEDS: DOCUSATE SODIUM 100 MG CAP PO (22:37)
[2017-11-02] MEDS: MAGNESIUM HYDROXIDE 30ML CUP PO (02:29)
[2017-11-02] MEDS: DEXTROSE 5%-0.45% NACL 1,000 ML IV ×3 (02:30→23:19)
[2017-11-02 05:35] LABS: ABNORMAL IP MESSAGE 1; HEMATOCRIT 31.4 % (42.0-52.0); HEMOGLOBIN 10.3 g/dl (14.0-18.0); MEAN CORPUSCULAR HEMOGLOBIN 32.3 pg (29.0-33.0); MEAN CORPUSCULAR HGB CONC 32.8 g/dl (32.0-37.0); MEAN CORPUSCULAR VOLUME 98.4 fl (82.0-101.0); PLATELET COUNT 89 10^3/UL (140-415); RED BLOOD COUNT 3.19 10^6/ul (4.70-6.10); RED CELL DISTRIBUTION WIDTH 15.3 % (11.5-14.5)
[2017-11-02 05:35] LABS: WHITE BLOOD COUNT 4.3 10^3/ul (4.8-10.8)
[2017-11-02 05:49] LABS: ADD MAN DIFF? YES
[2017-11-02] MEDS ORDERED: POLYETHYLENE GLYCOL 17 GM PACKET PO (09:00)
[2017-11-02] MEDS: DOCUSATE SODIUM 100 MG CAP PO ×2 (09:12→20:20)
[2017-11-02] MEDS: TOLTERODINE 1 MG TAB PO (09:12)
[2017-11-02 10:40] LABS: ANISOCYTOSIS 1+ (0-0); BAND NEUTROPHILS % (M) 1 % (0-4); BURR CELLS 1+ (0-0); LYMPHOCYTES #M 1.3 10^3/ul (0.8-2.9); LYMPHOCYTES % (M) 32 % (15-51); MONOCYTE #M 0.6 10^3/ul (0.3-0.9); MONOCYTES % (M) 14 % (0-11); OVALOCYTES 1+ (0-0); PLATELET ESTIMATE DECREASED; PLATELET MORPHOLOGY COMMENT @See below; POIKILOCYTOSIS 1+ (0-0); REACTIVE LYMPHOCYTES #M 0.1 10^3/ul (0.0-0.0); REACTIVE LYMPHOCYTES% (M) 3 % (0-0); SEG NEUT #M 2.2 10^3/ul (1.6-7.5); SEGMENTED NEUTROPHILS (M) % 50 % (39-77); SMUDGE%M 30 % (0-0)
[2017-11-02] MEDS: CEPASTAT LOZENGE MT (11:52)
[2017-11-02] MEDS: ERTAPENEM SODIUM 1 GM in SOD CHLORIDE 0.9% 100 ML IVPB (14:43)
[2017-11-02] MEDS ORDERED: LACTULOSE 30ML CUP PO (16:00)
[2017-11-02] MEDS: LACTULOSE 30ML CUP PO (16:08)
[2017-11-02 17:37] LABS: ANION GAP 14 (8-16); BLOOD UREA NITROGEN 13 mg/dl (7-20); CALCIUM 8.6 mg/dl (8.4-10.2); CARBON DIOXIDE 27 mmol/L (21-31); CHLORIDE 105 mmol/L (97-110); CREATININE 0.74 mg/dl (0.61-1.24); GLUCOSE 93 mg/dl (70-220); POTASSIUM 4.2 mmol/L (3.5-5.1); SODIUM 142 mmol/L (135-144)
[2017-11-02] MEDS: LATANOPROST 0.005% 2.5 ML OPH BOTH EYES (20:20)
[2017-11-03 05:50] LABS: ABNORMAL IP MESSAGE 1; ADD MAN DIFF? NO; BASOPHILS % 0.7 % (0.0-2.0); EOSINOPHILS % 0.3 % (0.0-7.0); HEMATOCRIT 31.1 % (42.0-52.0); HEMOGLOBIN 10.2 g/dl (14.0-18.0); LYMPHOCYTES # 1.3 10^3/ul (0.8-2.9); LYMPHOCYTES % 44.8 % (15.0-51.0); MEAN CORPUSCULAR HEMOGLOBIN 32.5 pg (29.0-33.0); MEAN CORPUSCULAR HGB CONC 32.8 g/dl (32.0-37.0); MEAN PLATELET VOLUME 11.3 fl (7.4-10.4); MONOCYTE # 0.5 10^3/ul (0.3-0.9); MONOCYTES % 15.6 % (0.0-11.0); NEUTROPHIL # 1.1 10^3/ul (1.6-7.5); NEUTROPHILS % 37.9 % (39.0-77.0); PLATELET COUNT 75 10^3/UL (140-415); POSITIVE DIFF @See below; RED BLOOD COUNT 3.14 10^6/ul (4.70-6.10); RED CELL DISTRIBUTION WIDTH 15.7 % (11.5-14.5)
[2017-11-03 05:50] LABS: WHITE BLOOD COUNT 2.9 10^3/ul (4.8-10.8)
[2017-11-03 06:23] LABS: ALANINE AMINOTRANSFERASE 39 IU/L (13-69); ALBUMIN 3.5 g/dl (3.3-4.9); ALBUMIN/GLOBULIN RATIO 1.12; ALKALINE PHOSPHATASE 70 IU/L (42-121); ANION GAP 10 (8-16); ASPARTATE AMINO TRANSFERASE 30 IU/L (15-46); BILIRUBIN,INDIRECT 0.2 mg/dl (0-1.1); BILIRUBIN,TOTAL 0.2 mg/dl (0.2-1.3); BLOOD UREA NITROGEN 10 mg/dl (7-20); CALCIUM 8.8 mg/dl (8.4-10.2); CARBON DIOXIDE 28 mmol/L (21-31); CHLORIDE 109 mmol/L (97-110); CREATININE 0.77 mg/dl (0.61-1.24); GLUCOSE 100 mg/dl (70-220); POTASSIUM 4.5 mmol/L (3.5-5.1); SODIUM 142 mmol/L (135-144); TOTAL PROTEIN 6.6 g/dl (6.1-8.1)
[2017-11-03 06:40] LABS: INR 1.12; PROTIME 14.6 Sec (11.9-14.9); PT RATIO 1.1
[2017-11-03 06:41] LABS: PARTIAL THROMBOPLASTIN TIME 33.7 Sec (25.0-35.0)
[2017-11-03] MEDS: DOCUSATE SODIUM 100 MG CAP PO (09:21)
[2017-11-03] MEDS: POLYETHYLENE GLYCOL 17 GM PACKET PO (09:26)
[2017-11-03] MEDS: NA PHOSPHATE/BIPHOS 133 ML ENEMA PR (12:39)
[2017-11-03] MEDS: ERTAPENEM SODIUM 1 GM in SOD CHLORIDE 0.9% 100 ML IVPB (12:42)
== END 2017-11-03 17:59 | disposition home or self-care (01) | DRG 666 ==
LOC: REC 10:30 → PP2 19:15
PROVIDERS: Urology
PROC: 0VT08ZZ Resection of Prostate, Via Natural or Artificial Opening Endoscopic (ICD-10-PCS; principal; 2017-11-01 12:30)
DX: R33.8 Other retention of urine (principal); N39.0 Urinary tract infection, site not specified; C7B.8 Other secondary neuroendocrine tumors; C78.7 Secondary malignant neoplasm of liver and intrahepatic bile duct; B96.1 Klebsiella pneumoniae [K. pneumoniae] as the cause of diseases classified elsewhere; K59.00 Constipation, unspecified; Z85.46 Personal history of malignant neoplasm of prostate
CPT/HCPCS: 80048; 80053; 85025; 85610; 85730; 86850; 86900; 86901; 87086; 88305

== ENCOUNTER 2018-02-11 11:26 | Day surgery (SDC) | payer OTHER ==
[2018-02-11] MEDS ORDERED: LIDOCAINE 2% (SDV) 5 ML INJ (13:47)
[2018-02-11] MEDS ORDERED: PROPOFOL 20 ML (13:47)
== END 2018-02-11 14:49 | disposition home or self-care (01) ==
LOC: GIL 11:26
DX: K29.70 Gastritis, unspecified, without bleeding (principal)
CPT/HCPCS: 43239; 88305; 88312

== ENCOUNTER 2018-02-18 11:19 | Emergency (ER) | payer OTHER ==
[2018-02-18 14:15] LABS: ADD MAN DIFF? NO
[2018-02-18 14:18] LABS: WHITE BLOOD COUNT 5.9 10^3/ul (4.8-10.8)
[2018-02-18 14:18] LABS: BASOPHILS % 0.3 % (0.0-2.0); EOSINOPHILS % 0.5 % (0.0-7.0); HEMATOCRIT 43.7 % (42.0-52.0); HEMOGLOBIN 14.2 g/dl (14.0-18.0); LYMPHOCYTES # 1.4 10^3/ul (0.8-2.9); LYMPHOCYTES % 24.5 % (15.0-51.0); MEAN CORPUSCULAR HEMOGLOBIN 29.7 pg (29.0-33.0); MEAN CORPUSCULAR HGB CONC 32.5 g/dl (32.0-37.0); MEAN CORPUSCULAR VOLUME 91.4 fl (82.0-101.0); MEAN PLATELET VOLUME 10.3 fl (7.4-10.4); MONOCYTE # 0.6 10^3/ul (0.3-0.9); MONOCYTES % 9.7 % (0.0-11.0); NEUTROPHIL # 3.8 10^3/ul (1.6-7.5); NEUTROPHILS % 64.8 % (39.0-77.0); PLATELET COUNT 158 10^3/UL (140-415); RED BLOOD COUNT 4.78 10^6/ul (4.70-6.10); RED CELL DISTRIBUTION WIDTH 13.3 % (11.5-14.5)
[2018-02-18 14:31] LABS: URINE BLOOD (Dip) POC 1+ (NEGATIVE); URINE GLUCOSE (Dip) POC Negative (NEGATIVE); URINE KETONES (Dip) POC Negative (NEGATIVE); URINE LEUKOCYTE EST (Dip) POC 1+ (NEGATIVE); URINE NITRITE (Dip) POC Negative (NEGATIVE); URINE TOTAL PROTEIN POC Negative (NEGATIVE)
[2018-02-18 14:41] LABS: ALANINE AMINOTRANSFERASE 75 IU/L (13-69); ALBUMIN 4.6 g/dl (3.3-4.9); ALKALINE PHOSPHATASE 296 IU/L (42-121); ANION GAP 14 (5-13); ASPARTATE AMINO TRANSFERASE 95 IU/L (15-46); BILIRUBIN,INDIRECT 0.5 mg/dl (0-1.1); BILIRUBIN,TOTAL 0.5 mg/dl (0.2-1.3); BLOOD UREA NITROGEN 24 mg/dl (7-20); CALCIUM 9.5 mg/dl (8.4-10.2); CARBON DIOXIDE 25 mmol/L (21-31); CHLORIDE 100 mmol/L (97-110); CREATININE 1.36 mg/dl (0.61-1.24); Estimated GFR 52 mL/min (>60); GLUCOSE 126 mg/dl (70-220); LIPASE 120 U/L (23-300); POTASSIUM 4.6 mmol/L (3.5-5.1); SODIUM 139 mmol/L (135-144); TOTAL PROTEIN 9.2 g/dl (6.1-8.1)
[2018-02-18] MEDS: SOD CHLORIDE 0.9% 500 ML IV (14:41)
[2018-02-18 14:53] LABS: TROPONIN-I < 0.012 ng/ml (0.000-0.120)
== END 2018-02-18 16:45 | disposition home or self-care (01) ==
LOC: E/R 16:45
DX: N39.0 Urinary tract infection, site not specified (principal); E86.0 Dehydration; R94.5 Abnormal results of liver function studies; Z85.118 Personal history of other malignant neoplasm of bronchus and lung; Z87.891 Personal history of nicotine dependence
CPT/HCPCS: 36415; 71045; 80053; 81003; 83690; 84484; 85025; 87086; 93005; 99285-25

== ENCOUNTER 2018-03-07 09:49 | Inpatient (IN) | payer OTHER ==
[2018-03-07] MEDS ORDERED: ASPIRIN 325 MG TAB PO (10:30)
[2018-03-07 10:32] LABS: ADD MAN DIFF? NO
[2018-03-07] MEDS: SODIUM CHLORIDE 0.9% 1L BAG IV* (10:34)
[2018-03-07 10:49] LABS: ALANINE AMINOTRANSFERASE 294 IU/L (13-69); ALBUMIN 3.9 g/dl (3.3-4.9); ALBUMIN/GLOBULIN RATIO 1.21; ALKALINE PHOSPHATASE 398 IU/L (42-121); AMYLASE 134 U/L (11-123); ANION GAP 11 (5-13); ASPARTATE AMINO TRANSFERASE 225 IU/L (15-46); BILIRUBIN,INDIRECT 0.5 mg/dl (0-1.1); BILIRUBIN,TOTAL 0.5 mg/dl (0.2-1.3); BLOOD UREA NITROGEN 29 mg/dl (7-20); CALCIUM 8.4 mg/dl (8.4-10.2); CARBON DIOXIDE 28 mmol/L (21-31); CHLORIDE 97 mmol/L (97-110); CREATININE 1.33 mg/dl (0.61-1.24); Estimated GFR 53 mL/min (>60); GLUCOSE 134 mg/dl (70-220); LIPASE 153 U/L (23-300); SODIUM 136 mmol/L (135-144); TOTAL PROTEIN 7.1 g/dl (6.1-8.1)
[2018-03-07 10:51] LABS: BASOPHILS % 0.1 % (0.0-2.0); EOSINOPHILS # 0.1 10^3/ul (0.0-0.5); EOSINOPHILS % 0.6 % (0.0-7.0); HEMATOCRIT 43.1 % (42.0-52.0); LYMPHOCYTES # 1.1 10^3/ul (0.8-2.9); LYMPHOCYTES % 13.7 % (15.0-51.0); MEAN CORPUSCULAR HEMOGLOBIN 29.2 pg (29.0-33.0); MEAN CORPUSCULAR HGB CONC 32.5 g/dl (32.0-37.0); MEAN CORPUSCULAR VOLUME 89.8 fl (82.0-101.0); MEAN PLATELET VOLUME 10.4 fl (7.4-10.4); MONOCYTE # 0.6 10^3/ul (0.3-0.9); MONOCYTES % 8.1 % (0.0-11.0); NEUTROPHILS % 76.7 % (39.0-77.0); PLATELET COUNT 230 10^3/UL (140-415)
[2018-03-07 10:51] LABS: WHITE BLOOD COUNT 7.8 10^3/ul (4.8-10.8)
[2018-03-07 10:57] LABS: INR 1.23; PROTIME 15.7 Sec (11.9-14.9); PT RATIO 1.2
[2018-03-07 10:58] LABS: PARTIAL THROMBOPLASTIN TIME 27.9 Sec (23.0-35.0)
[2018-03-07 11:00] LABS: TROPONIN-I < 0.012 ng/ml (0.000-0.120)
[2018-03-07] MEDS ORDERED: ACETAMINOPHEN 325 MG TAB PO (11:00)
[2018-03-07] MEDS ORDERED: ONDANSETRON 4 MG INJ IV (11:00)
[2018-03-07] MEDS: LIDOCAINE/MYLANTA 40 ML BTL PO (11:39)
[2018-03-07] MEDS: IODIXANOL LOCM 100 ML BTL (12:12)
[2018-03-07] MEDS: SOD CHLORIDE 0.9% 100 ML (12:12)
[2018-03-07] MEDS ORDERED: NACL 0.9% 3 ML SYG IV (13:30)
[2018-03-07] MEDS ORDERED: HYDROCODONE/APAP (5/325) TAB PO (13:30)
[2018-03-07] MEDS: LATANOPROST 0.005% 2.5 ML OPH BOTH EYES ×2 (15:00→22:16)
[2018-03-07 15:13] LABS: TROPONIN-I < 0.012 ng/ml (0.000-0.120)
[2018-03-07] MEDS: POLYETHYLENE GLYCOL 17 GM PACKET PO (16:41)
[2018-03-07 17:53] LABS: ADD UMIC NO; UR ASCORBIC ACID NEGATIVE (NEGATIVE); UR BILIRUBIN (Dip) NEGATIVE (NEGATIVE); UR BLOOD (Dip) NEGATIVE (NEGATIVE); UR CLARITY CLEAR (CLEAR); UR COLOR YELLOW (YELLOW); UR GLUCOSE (Dip) NEGATIVE (NEGATIVE); UR KETONES (Dip) NEGATIVE (NEGATIVE); UR LEUKOCYTE ESTERASE (Dip) NEGATIVE Leu/ul (NEGATIVE); UR NITRITE (Dip) NEGATIVE (NEGATIVE); UR SPECIFIC GRAVITY (Dip) 1.033 (1.003-1.030); UR TOTAL PROTEIN (Dip) NEGATIVE (NEGATIVE); UR UROBILINOGEN (Dip) NEGATIVE (NEGATIVE)
[2018-03-07] MEDS: SENNA TAB PO (20:19)
[2018-03-07 21:13] LABS: TROPONIN-I < 0.012 ng/ml (0.000-0.120)
[2018-03-07] MEDS: MAGNESIUM HYDROXIDE 30ML CUP PO (22:16)
[2018-03-08] MEDS: PANTOPRAZOLE (EC) 40 MG TAB PO ×2 (05:33→08:36)
[2018-03-08] MEDS ORDERED: PANTOPRAZOLE (EC) 40 MG TAB PO (06:00)
[2018-03-08 06:10] LABS: ADD MAN DIFF? NO
[2018-03-08 06:18] LABS: BASOPHILS % 0.1 % (0.0-2.0); EOSINOPHILS % 0.5 % (0.0-7.0); HEMATOCRIT 38.4 % (42.0-52.0); HEMOGLOBIN 12.4 g/dl (14.0-18.0); LYMPHOCYTES % 12.9 % (15.0-51.0); MEAN CORPUSCULAR HEMOGLOBIN 28.8 pg (29.0-33.0); MEAN CORPUSCULAR HGB CONC 32.3 g/dl (32.0-37.0); MEAN CORPUSCULAR VOLUME 89.1 fl (82.0-101.0); MEAN PLATELET VOLUME 10.1 fl (7.4-10.4); MONOCYTE # 0.7 10^3/ul (0.3-0.9); MONOCYTES % 8.4 % (0.0-11.0); NEUTROPHIL # 6.1 10^3/ul (1.6-7.5); NEUTROPHILS % 77.6 % (39.0-77.0); PLATELET COUNT 194 10^3/UL (140-415); RED BLOOD COUNT 4.31 10^6/ul (4.70-6.10); RED CELL DISTRIBUTION WIDTH 14.9 % (11.5-14.5)
[2018-03-08 06:18] LABS: WHITE BLOOD COUNT 7.8 10^3/ul (4.8-10.8)
[2018-03-08 06:32] LABS: ALANINE AMINOTRANSFERASE 230 IU/L (13-69); ALBUMIN 3.2 g/dl (3.3-4.9); ALBUMIN/GLOBULIN RATIO 1.28; ALKALINE PHOSPHATASE 350 IU/L (42-121); ANION GAP 7 (5-13); ASPARTATE AMINO TRANSFERASE 168 IU/L (15-46); BILIRUBIN,INDIRECT 0.5 mg/dl (0-1.1); BILIRUBIN,TOTAL 0.5 mg/dl (0.2-1.3); BLOOD UREA NITROGEN 22 mg/dl (7-20); CALCIUM 7.6 mg/dl (8.4-10.2); CARBON DIOXIDE 28 mmol/L (21-31); CHLORIDE 101 mmol/L (97-110); CREATININE 1.11 mg/dl (0.61-1.24); Estimated GFR > 60 mL/min (>60); GLUCOSE 124 mg/dl (70-220); MAGNESIUM 2.4 mg/dl (1.7-2.5); PHOSPHORUS 2.5 mg/dl (2.5-4.9); POTASSIUM 5.3 mmol/L (3.5-5.1); SODIUM 136 mmol/L (135-144); TOTAL PROTEIN 5.7 g/dl (6.1-8.1)
[2018-03-08] MEDS: predniSONE 20 MG TAB PO (08:30)
[2018-03-08] MEDS: SENNA TAB PO ×2 (08:33→21:00)
[2018-03-08] MEDS ORDERED: predniSONE 20 MG TAB PO (09:00)
[2018-03-08] MEDS: ENOXAPARIN 40 MG/0.4 ML SYG SC (09:05)
[2018-03-08] MEDS: NA POLYST SULFON 15 GM/60 ML BTL PO (10:34)
[2018-03-08] MEDS: ONDANSETRON 4 MG INJ IV (14:25)
[2018-03-08] MEDS: MAGNESIUM HYDROXIDE 30ML CUP PO (14:25)
[2018-03-08] MEDS: BISACODYL 10 MG SUPP PR (19:49)
[2018-03-08] MEDS: PANTOPRAZOLE 40 MG INJ IV (22:17)
[2018-03-08] MEDS: LATANOPROST 0.005% 2.5 ML OPH BOTH EYES (22:22)
[2018-03-09] MEDS: NA PHOSPHATE/BIPHOS 133 ML ENEMA PR ×2 (00:32→11:32)
[2018-03-09] MEDS: ONDANSETRON 4 MG INJ IV (00:46)
[2018-03-09] MEDS: PANTOPRAZOLE 40 MG INJ IV ×2 (06:14→18:17)
[2018-03-09 06:42] LABS: ADD MAN DIFF? NO
[2018-03-09 06:44] LABS: BASOPHILS % 0.1 % (0.0-2.0); EOSINOPHILS % 0.1 % (0.0-7.0); HEMATOCRIT 36.8 % (42.0-52.0); LYMPHOCYTES # 0.8 10^3/ul (0.8-2.9); LYMPHOCYTES % 7.1 % (15.0-51.0); MEAN CORPUSCULAR HEMOGLOBIN 28.9 pg (29.0-33.0); MEAN CORPUSCULAR HGB CONC 32.6 g/dl (32.0-37.0); MEAN CORPUSCULAR VOLUME 88.7 fl (82.0-101.0); MEAN PLATELET VOLUME 10.5 fl (7.4-10.4); MONOCYTE # 0.7 10^3/ul (0.3-0.9); MONOCYTES % 6.7 % (0.0-11.0); NEUTROPHIL # 9.4 10^3/ul (1.6-7.5); NEUTROPHILS % 85.4 % (39.0-77.0); PLATELET COUNT 188 10^3/UL (140-415); RED BLOOD COUNT 4.15 10^6/ul (4.70-6.10); RED CELL DISTRIBUTION WIDTH 15.7 % (11.5-14.5)
[2018-03-09 07:20] LABS: ALANINE AMINOTRANSFERASE 203 IU/L (13-69); ALBUMIN 3.2 g/dl (3.3-4.9); ALBUMIN/GLOBULIN RATIO 1.23; ALKALINE PHOSPHATASE 344 IU/L (42-121); ANION GAP 8 (5-13); ASPARTATE AMINO TRANSFERASE 137 IU/L (15-46); BILIRUBIN,INDIRECT 0.5 mg/dl (0-1.1); BILIRUBIN,TOTAL 0.5 mg/dl (0.2-1.3); BLOOD UREA NITROGEN 24 mg/dl (7-20); CALCIUM 7.3 mg/dl (8.4-10.2); CARBON DIOXIDE 28 mmol/L (21-31); CHLORIDE 100 mmol/L (97-110); CREATININE 1.06 mg/dl (0.61-1.24); Estimated GFR > 60 mL/min (>60); GLUCOSE 141 mg/dl (70-220); MAGNESIUM 2.4 mg/dl (1.7-2.5); POTASSIUM 3.9 mmol/L (3.5-5.1); SODIUM 136 mmol/L (135-144); TOTAL PROTEIN 5.8 g/dl (6.1-8.1)
[2018-03-09] MEDS: predniSONE 20 MG TAB PO (08:04)
[2018-03-09] MEDS: ENOXAPARIN 40 MG/0.4 ML SYG SC (08:39)
[2018-03-09] MEDS: SENNA TAB PO ×2 (08:46→21:00)
[2018-03-09] MEDS: LATANOPROST 0.005% 2.5 ML OPH BOTH EYES (21:33)
[2018-03-10 05:59] LABS: ADD MAN DIFF? NO
[2018-03-10 06:12] LABS: BASOPHILS % 0.1 % (0.0-2.0); EOSINOPHILS % 0.1 % (0.0-7.0); HEMATOCRIT 35.7 % (42.0-52.0); HEMOGLOBIN 11.7 g/dl (14.0-18.0); LYMPHOCYTES # 0.9 10^3/ul (0.8-2.9); LYMPHOCYTES % 10.9 % (15.0-51.0); MEAN CORPUSCULAR HGB CONC 32.8 g/dl (32.0-37.0); MEAN CORPUSCULAR VOLUME 88.6 fl (82.0-101.0); MEAN PLATELET VOLUME 10.6 fl (7.4-10.4); MONOCYTE # 0.6 10^3/ul (0.3-0.9); MONOCYTES % 7.2 % (0.0-11.0); NEUTROPHIL # 6.8 10^3/ul (1.6-7.5); NEUTROPHILS % 81.1 % (39.0-77.0); PLATELET COUNT 183 10^3/UL (140-415); RED BLOOD COUNT 4.03 10^6/ul (4.70-6.10); RED CELL DISTRIBUTION WIDTH 15.8 % (11.5-14.5)
[2018-03-10 06:12] LABS: WHITE BLOOD COUNT 8.4 10^3/ul (4.8-10.8)
[2018-03-10] MEDS: NA PHOSPHATE/BIPHOS 133 ML ENEMA PR ×2 (06:12→14:55)
[2018-03-10] MEDS: PANTOPRAZOLE 40 MG INJ IV ×2 (06:12→17:38)
[2018-03-10 06:46] LABS: ALANINE AMINOTRANSFERASE 196 IU/L (13-69); ALBUMIN 3.2 g/dl (3.3-4.9); ALBUMIN/GLOBULIN RATIO 1.23; ALKALINE PHOSPHATASE 316 IU/L (42-121); ANION GAP 9 (5-13); ASPARTATE AMINO TRANSFERASE 129 IU/L (15-46); BILIRUBIN,INDIRECT 0.4 mg/dl (0-1.1); BILIRUBIN,TOTAL 0.4 mg/dl (0.2-1.3); BLOOD UREA NITROGEN 27 mg/dl (7-20); CALCIUM 7.3 mg/dl (8.4-10.2); CARBON DIOXIDE 28 mmol/L (21-31); CHLORIDE 99 mmol/L (97-110); Estimated GFR > 60 mL/min (>60); GLUCOSE 139 mg/dl (70-220); MAGNESIUM 2.4 mg/dl (1.7-2.5); PHOSPHORUS 2.9 mg/dl (2.5-4.9); POTASSIUM 4.2 mmol/L (3.5-5.1); SODIUM 136 mmol/L (135-144); TOTAL PROTEIN 5.8 g/dl (6.1-8.1)
[2018-03-10] MEDS: ENOXAPARIN 40 MG/0.4 ML SYG SC (08:56)
[2018-03-10] MEDS: predniSONE 20 MG TAB PO (09:00)
[2018-03-10] MEDS: SENNA TAB PO ×2 (09:00→21:24)
[2018-03-10] MEDS ORDERED: MINERAL OIL 133 ML ENEMA PR (15:30)
[2018-03-10] MEDS: LATANOPROST 0.005% 2.5 ML OPH BOTH EYES (21:24)
[2018-03-11] MEDS: ZOLPIDEM 5 MG TAB PO ×2 (00:06→22:34)
[2018-03-11] MEDS: PANTOPRAZOLE 40 MG INJ IV ×2 (06:08→09:50)
[2018-03-11 07:17] LABS: ADD MAN DIFF? NO
[2018-03-11 07:21] LABS: BASOPHILS % 0.1 % (0.0-2.0); EOSINOPHILS # 0.1 10^3/ul (0.0-0.5); EOSINOPHILS % 1.1 % (0.0-7.0); HEMATOCRIT 37.6 % (42.0-52.0); HEMOGLOBIN 12.1 g/dl (14.0-18.0); LYMPHOCYTES # 1.2 10^3/ul (0.8-2.9); LYMPHOCYTES % 15.5 % (15.0-51.0); MEAN CORPUSCULAR HEMOGLOBIN 28.9 pg (29.0-33.0); MEAN CORPUSCULAR HGB CONC 32.2 g/dl (32.0-37.0); MEAN PLATELET VOLUME 10.6 fl (7.4-10.4); MONOCYTE # 0.6 10^3/ul (0.3-0.9); MONOCYTES % 7.6 % (0.0-11.0); NEUTROPHILS % 74.9 % (39.0-77.0); PLATELET COUNT 173 10^3/UL (140-415); RED BLOOD COUNT 4.18 10^6/ul (4.70-6.10); RED CELL DISTRIBUTION WIDTH 15.8 % (11.5-14.5)
[2018-03-11 07:53] LABS: ALANINE AMINOTRANSFERASE 206 IU/L (13-69); ALBUMIN 3.2 g/dl (3.3-4.9); ALBUMIN/GLOBULIN RATIO 1.28; ALKALINE PHOSPHATASE 337 IU/L (42-121); ANION GAP 8 (5-13); ASPARTATE AMINO TRANSFERASE 158 IU/L (15-46); BILIRUBIN,INDIRECT 0.6 mg/dl (0-1.1); BILIRUBIN,TOTAL 0.6 mg/dl (0.2-1.3); BLOOD UREA NITROGEN 26 mg/dl (7-20); CALCIUM 7.3 mg/dl (8.4-10.2); CARBON DIOXIDE 27 mmol/L (21-31); CHLORIDE 99 mmol/L (97-110); CREATININE 1.28 mg/dl (0.61-1.24); Estimated GFR 56 mL/min (>60); GLUCOSE 114 mg/dl (70-220); MAGNESIUM 2.4 mg/dl (1.7-2.5); PHOSPHORUS 2.1 mg/dl (2.5-4.9); POTASSIUM 4.5 mmol/L (3.5-5.1); SODIUM 134 mmol/L (135-144); TOTAL PROTEIN 5.7 g/dl (6.1-8.1)
[2018-03-11] MEDS: SENNA TAB PO ×2 (09:00→20:40)
[2018-03-11] MEDS: ENOXAPARIN 40 MG/0.4 ML SYG SC (09:49)
[2018-03-11] MEDS: predniSONE 20 MG TAB PO (09:50)
[2018-03-11] MEDS: SOD CHLORIDE 0.9% 1,000 ML IV (14:53)
[2018-03-11] MEDS: SODIUM PHOSPHATE 20 MEQ in SOD CHLORIDE 0.9% 250 ML IV (16:56)
[2018-03-11] MEDS ORDERED: HEPARIN 5,000 UNIT/0.5 ML VIAL (20:20)
[2018-03-11] MEDS: LATANOPROST 0.005% 2.5 ML OPH BOTH EYES (20:40)
[2018-03-11] MEDS: HEPARIN 5,000 UNIT/1 ML VIAL SC (21:48)
[2018-03-12] MEDS: SOD CHLORIDE 0.9% 1,000 ML IV ×2 (00:30→10:08)
[2018-03-12] MEDS: ZOLPIDEM 5 MG TAB PO (01:47)
[2018-03-12] MEDS: METOCLOPRAMIDE 10 MG INJ IV (02:47)
[2018-03-12] MEDS: PANTOPRAZOLE 40 MG INJ IV ×2 (06:24→18:07)
[2018-03-12 06:28] LABS: ADD MAN DIFF? NO
[2018-03-12 06:50] LABS: WHITE BLOOD COUNT 10.5 10^3/ul (4.8-10.8)
[2018-03-12 06:50] LABS: BASOPHILS % 0.1 % (0.0-2.0); EOSINOPHILS % 0.3 % (0.0-7.0); HEMATOCRIT 40.4 % (42.0-52.0); HEMOGLOBIN 13.1 g/dl (14.0-18.0); LYMPHOCYTES # 1.7 10^3/ul (0.8-2.9); LYMPHOCYTES % 16.6 % (15.0-51.0); MEAN CORPUSCULAR HGB CONC 32.4 g/dl (32.0-37.0); MEAN CORPUSCULAR VOLUME 89.4 fl (82.0-101.0); MEAN PLATELET VOLUME 10.5 fl (7.4-10.4); MONOCYTE # 0.9 10^3/ul (0.3-0.9); MONOCYTES % 8.1 % (0.0-11.0); NEUTROPHIL # 7.8 10^3/ul (1.6-7.5); NEUTROPHILS % 74.1 % (39.0-77.0); PLATELET COUNT 200 10^3/UL (140-415); RED BLOOD COUNT 4.52 10^6/ul (4.70-6.10); RED CELL DISTRIBUTION WIDTH 15.8 % (11.5-14.5)
[2018-03-12 07:29] LABS: ALANINE AMINOTRANSFERASE 288 IU/L (13-69); ALBUMIN 3.5 g/dl (3.3-4.9); ALBUMIN/GLOBULIN RATIO 1.09; ALKALINE PHOSPHATASE 415 IU/L (42-121); ANION GAP 8 (5-13); ASPARTATE AMINO TRANSFERASE 298 IU/L (15-46); BILIRUBIN,INDIRECT 0.8 mg/dl (0-1.1); BLOOD UREA NITROGEN 25 mg/dl (7-20); CALCIUM 7.4 mg/dl (8.4-10.2); CARBON DIOXIDE 29 mmol/L (21-31); CHLORIDE 98 mmol/L (97-110); CREATININE 1.09 mg/dl (0.61-1.24); Estimated GFR > 60 mL/min (>60); GLUCOSE 130 mg/dl (70-220); MAGNESIUM 2.3 mg/dl (1.7-2.5); PHOSPHORUS 2.4 mg/dl (2.5-4.9); POTASSIUM 4.2 mmol/L (3.5-5.1); SODIUM 135 mmol/L (135-144); TOTAL PROTEIN 6.7 g/dl (6.1-8.1)
[2018-03-12] MEDS ORDERED: HEPARIN 5,000 UNIT/0.5 ML VIAL ×2 (08:13→19:50)
[2018-03-12] MEDS: predniSONE 20 MG TAB PO (08:18)
[2018-03-12] MEDS: SENNA TAB PO ×2 (08:18→20:29)
[2018-03-12] MEDS: HEPARIN 5,000 UNIT/1 ML VIAL SC ×2 (08:34→20:44)
[2018-03-12] MEDS ORDERED: DEXAMETHASONE 10 MG/ML 1 ML INJ IV ×2 (15:30)
[2018-03-12] MEDS: LATANOPROST 0.005% 2.5 ML OPH BOTH EYES (20:29)
[2018-03-13] MEDS: LACTULOSE 30ML CUP PO ×5 (05:44→12:39)
[2018-03-13] MEDS: PANTOPRAZOLE 40 MG INJ IV ×2 (05:44→17:31)
[2018-03-13 06:59] LABS: ADD MAN DIFF? NO
[2018-03-13 07:02] LABS: WHITE BLOOD COUNT 9.9 10^3/ul (4.8-10.8)
[2018-03-13 07:02] LABS: BASOPHILS % 0.1 % (0.0-2.0); EOSINOPHILS % 0.3 % (0.0-7.0); HEMOGLOBIN 12.6 g/dl (14.0-18.0); LYMPHOCYTES # 1.1 10^3/ul (0.8-2.9); LYMPHOCYTES % 11.2 % (15.0-51.0); MEAN CORPUSCULAR HEMOGLOBIN 29.1 pg (29.0-33.0); MEAN CORPUSCULAR HGB CONC 32.3 g/dl (32.0-37.0); MEAN CORPUSCULAR VOLUME 90.1 fl (82.0-101.0); MEAN PLATELET VOLUME 10.6 fl (7.4-10.4); MONOCYTE # 0.7 10^3/ul (0.3-0.9); MONOCYTES % 7.4 % (0.0-11.0); NEUTROPHILS % 80.3 % (39.0-77.0); PLATELET COUNT 162 10^3/UL (140-415); RED BLOOD COUNT 4.33 10^6/ul (4.70-6.10); RED CELL DISTRIBUTION WIDTH 15.8 % (11.5-14.5)
[2018-03-13 07:19] LABS: MAGNESIUM 1.9 mg/dl (1.7-2.5)
[2018-03-13 07:26] LABS: ANION GAP 8 (5-13); BLOOD UREA NITROGEN 17 mg/dl (7-20); CALCIUM 6.9 mg/dl (8.4-10.2); CARBON DIOXIDE 26 mmol/L (21-31); CHLORIDE 99 mmol/L (97-110); Estimated GFR > 60 mL/min (>60); GLUCOSE 115 mg/dl (70-220); POTASSIUM 4.6 mmol/L (3.5-5.1); SODIUM 133 mmol/L (135-144)
[2018-03-13] MEDS ORDERED: HEPARIN 5,000 UNIT/0.5 ML VIAL ×2 (08:20→19:55)
[2018-03-13] MEDS: SENNA TAB PO ×2 (08:46→20:24)
[2018-03-13] MEDS: ONDANSETRON 4 MG INJ IV (08:52)
[2018-03-13] MEDS: HEPARIN 5,000 UNIT/1 ML VIAL SC ×2 (09:17→20:59)
[2018-03-13] MEDS: DEXAMETHASONE 10 MG/ML 1 ML INJ IV (10:50)
[2018-03-13 13:02] LABS: ALANINE AMINOTRANSFERASE 329 IU/L (13-69); ALKALINE PHOSPHATASE 360 IU/L (42-121); ASPARTATE AMINO TRANSFERASE 398 IU/L (15-46); BILIRUBIN,INDIRECT 0.9 mg/dl (0-1.1); BILIRUBIN,TOTAL 1.5 mg/dl (0.2-1.3)
[2018-03-13] MEDS: SODIUM PHOSPHATE 20 MEQ in SOD CHLORIDE 0.9% 250 ML IVPB (14:28)
[2018-03-13] MEDS: SUCRALFATE (100 MG/ML) 10ML CUP PO ×2 (16:34→20:25)
[2018-03-13] MEDS: HYOSCYAMINE 0.125 MG TAB PO (17:31)
[2018-03-13] MEDS: LATANOPROST 0.005% 2.5 ML OPH BOTH EYES (20:24)
[2018-03-13] MEDS: ZOLPIDEM 5 MG TAB PO ×2 (20:25→20:42)
[2018-03-14] MEDS: HYOSCYAMINE 0.125 MG TAB PO ×4 (01:02→17:31)
[2018-03-14 06:08] LABS: ADD MAN DIFF? NO
[2018-03-14 06:14] LABS: WHITE BLOOD COUNT 11.6 10^3/ul (4.8-10.8)
[2018-03-14 06:14] LABS: BASOPHILS % 0.1 % (0.0-2.0); EOSINOPHILS % 0.1 % (0.0-7.0); HEMATOCRIT 36.1 % (42.0-52.0); LYMPHOCYTES # 0.9 10^3/ul (0.8-2.9); LYMPHOCYTES % 7.3 % (15.0-51.0); MEAN CORPUSCULAR HEMOGLOBIN 29.3 pg (29.0-33.0); MEAN CORPUSCULAR HGB CONC 33.2 g/dl (32.0-37.0); MEAN PLATELET VOLUME 10.9 fl (7.4-10.4); MONOCYTE # 0.9 10^3/ul (0.3-0.9); MONOCYTES % 7.9 % (0.0-11.0); NEUTROPHIL # 9.7 10^3/ul (1.6-7.5); NEUTROPHILS % 83.9 % (39.0-77.0); PLATELET COUNT 154 10^3/UL (140-415)
[2018-03-14 06:37] LABS: ANION GAP 13 (5-13); BLOOD UREA NITROGEN 15 mg/dl (7-20); CALCIUM 6.8 mg/dl (8.4-10.2); CARBON DIOXIDE 25 mmol/L (21-31); CHLORIDE 97 mmol/L (97-110); Estimated GFR > 60 mL/min (>60); GLUCOSE 116 mg/dl (70-220); POTASSIUM 4.5 mmol/L (3.5-5.1); SODIUM 135 mmol/L (135-144)
[2018-03-14 06:38] LABS: ALANINE AMINOTRANSFERASE 321 IU/L (13-69); ALKALINE PHOSPHATASE 349 IU/L (42-121); ASPARTATE AMINO TRANSFERASE 334 IU/L (15-46); BILIRUBIN,TOTAL 2.1 mg/dl (0.2-1.3); TOTAL PROTEIN 5.6 g/dl (6.1-8.1)
[2018-03-14] MEDS: PANTOPRAZOLE 40 MG INJ IV ×2 (06:43→17:31)
[2018-03-14 06:45] LABS: MAGNESIUM 1.8 mg/dl (1.7-2.5)
[2018-03-14] MEDS ORDERED: HEPARIN 5,000 UNIT/0.5 ML VIAL ×2 (08:22→21:38)
[2018-03-14] MEDS: SUCRALFATE (100 MG/ML) 10ML CUP PO ×4 (08:33→21:45)
[2018-03-14] MEDS: SENNA TAB PO ×2 (08:34→21:00)
[2018-03-14] MEDS: HEPARIN 5,000 UNIT/1 ML VIAL SC ×2 (08:38→21:55)
[2018-03-14] MEDS: DEXAMETHASONE 10 MG/ML 1 ML INJ IV (09:53)
[2018-03-14] MEDS: IOHEXOL 300MG/ML 150 ML BTL ×6 (11:30→12:39)
[2018-03-14] MEDS ORDERED: DEXAMETHASONE 4 MG/ML 1 ML INJ IV (14:00)
[2018-03-14] MEDS ORDERED: LACTULOSE 30ML CUP PO (14:30)
[2018-03-14] MEDS: SODIUM PHOSPHATE 20 MEQ in SOD CHLORIDE 0.9% 250 ML IVPB (15:57)
[2018-03-14] MEDS: DEXAMETHASONE 4 MG/ML 1 ML INJ IV ×2 (17:31→17:32)
[2018-03-14] MEDS: DEXTROSE 5%-0.45% NACL 1,000 ML IV (20:05)
[2018-03-14] MEDS: LATANOPROST 0.005% 2.5 ML OPH BOTH EYES (20:05)
[2018-03-14] MEDS: POLYETHYLENE GLYCOL 17 GM PACKET PO (21:46)
[2018-03-14] MEDS: ZOLPIDEM 5 MG TAB PO (21:57)
[2018-03-15] MEDS: HYOSCYAMINE 0.125 MG TAB PO ×3 (00:30→12:26)
[2018-03-15] MEDS: DEXAMETHASONE 4 MG/ML 1 ML INJ IV ×4 (00:33→17:22)
[2018-03-15] MEDS: DEXTROSE 5%-0.45% NACL 1,000 ML IV ×2 (06:00→16:00)
[2018-03-15] MEDS: POLYETHYLENE GLYCOL 17 GM PACKET PO ×3 (06:00→21:24)
[2018-03-15] MEDS: PANTOPRAZOLE 40 MG INJ IV ×2 (06:39→17:22)
[2018-03-15 07:07] LABS: ADD MAN DIFF? NO
[2018-03-15 07:12] LABS: WHITE BLOOD COUNT 9.8 10^3/ul (4.8-10.8)
[2018-03-15 07:12] LABS: ABNORMAL IP MESSAGE 1; BASOPHILS % 0.1 % (0.0-2.0); HEMATOCRIT 34.9 % (42.0-52.0); HEMOGLOBIN 11.6 g/dl (14.0-18.0); LYMPHOCYTES # 0.5 10^3/ul (0.8-2.9); LYMPHOCYTES % 4.6 % (15.0-51.0); MEAN CORPUSCULAR HEMOGLOBIN 29.1 pg (29.0-33.0); MEAN CORPUSCULAR HGB CONC 33.2 g/dl (32.0-37.0); MEAN CORPUSCULAR VOLUME 87.7 fl (82.0-101.0); MEAN PLATELET VOLUME 10.6 fl (7.4-10.4); MONOCYTE # 0.6 10^3/ul (0.3-0.9); MONOCYTES % 6.2 % (0.0-11.0); NEUTROPHIL # 8.6 10^3/ul (1.6-7.5); NEUTROPHILS % 88.3 % (39.0-77.0); PLATELET COUNT 142 10^3/UL (140-415); POSITIVE DIFF @See below; RED BLOOD COUNT 3.98 10^6/ul (4.70-6.10); RED CELL DISTRIBUTION WIDTH 16.4 % (11.5-14.5)
[2018-03-15 07:44] LABS: PHOSPHORUS 1.9 mg/dl (2.5-4.9)
[2018-03-15 07:44] LABS: MAGNESIUM 1.9 mg/dl (1.7-2.5)
[2018-03-15 07:58] LABS: ANION GAP 12 (5-13); BLOOD UREA NITROGEN 18 mg/dl (7-20); CALCIUM 6.7 mg/dl (8.4-10.2); CARBON DIOXIDE 25 mmol/L (21-31); CHLORIDE 96 mmol/L (97-110); CREATININE 0.98 mg/dl (0.61-1.24); Estimated GFR > 60 mL/min (>60); GLUCOSE 172 mg/dl (70-220); POTASSIUM 4.3 mmol/L (3.5-5.1); SODIUM 133 mmol/L (135-144)
[2018-03-15] MEDS ORDERED: HEPARIN 5,000 UNIT/0.5 ML VIAL ×2 (08:16→20:03)
[2018-03-15] MEDS: SUCRALFATE (100 MG/ML) 10ML CUP PO ×4 (08:32→21:01)
[2018-03-15] MEDS: SENNA TAB PO ×2 (08:32→21:01)
[2018-03-15] MEDS: HEPARIN 5,000 UNIT/1 ML VIAL SC ×2 (08:39→21:23)
[2018-03-15] MEDS: MAGNESIUM HYDROXIDE 30ML CUP PO (10:14)
[2018-03-15] MEDS: MEGESTROL (40 MG/ML) 10ML CUP PO (14:34)
[2018-03-15 14:35] LABS: ALANINE AMINOTRANSFERASE 282 IU/L (13-69); ALKALINE PHOSPHATASE 324 IU/L (42-121); ASPARTATE AMINO TRANSFERASE 254 IU/L (15-46); BILIRUBIN,TOTAL 1.9 mg/dl (0.2-1.3); TOTAL PROTEIN 5.9 g/dl (6.1-8.1)
[2018-03-15] MEDS: SODIUM PHOSPHATE 30 MMOL in SOD CHLORIDE 0.9% 250 ML IVPB (14:49)
[2018-03-15] MEDS: LATANOPROST 0.005% 2.5 ML OPH BOTH EYES (21:01)
[2018-03-16] MEDS: DEXTROSE 5%-0.45% NACL 1,000 ML IV ×3 (00:04→22:00)
[2018-03-16] MEDS: ZOLPIDEM 5 MG TAB PO ×2 (00:43→23:54)
[2018-03-16] MEDS: DEXAMETHASONE 4 MG/ML 1 ML INJ IV ×5 (00:43→23:54)
[2018-03-16] MEDS: PANTOPRAZOLE 40 MG INJ IV ×2 (05:39→18:01)
[2018-03-16] MEDS: POLYETHYLENE GLYCOL 17 GM PACKET PO ×2 (05:40→21:00)
[2018-03-16 06:23] LABS: ADD MAN DIFF? NO
[2018-03-16 06:28] LABS: WHITE BLOOD COUNT 8.4 10^3/ul (4.8-10.8)
[2018-03-16 06:28] LABS: ABNORMAL IP MESSAGE 1; HEMATOCRIT 31.1 % (42.0-52.0); HEMOGLOBIN 10.6 g/dl (14.0-18.0); LYMPHOCYTES # 0.4 10^3/ul (0.8-2.9); MEAN CORPUSCULAR HEMOGLOBIN 29.8 pg (29.0-33.0); MEAN CORPUSCULAR HGB CONC 34.1 g/dl (32.0-37.0); MEAN CORPUSCULAR VOLUME 87.4 fl (82.0-101.0); MEAN PLATELET VOLUME 10.9 fl (7.4-10.4); MONOCYTE # 0.5 10^3/ul (0.3-0.9); MONOCYTES % 6.3 % (0.0-11.0); NEUTROPHIL # 7.4 10^3/ul (1.6-7.5); NEUTROPHILS % 87.6 % (39.0-77.0); PLATELET COUNT 144 10^3/UL (140-415); POSITIVE DIFF @See below; RED BLOOD COUNT 3.56 10^6/ul (4.70-6.10); RED CELL DISTRIBUTION WIDTH 16.5 % (11.5-14.5)
[2018-03-16 07:20] LABS: ANION GAP 10 (5-13); BLOOD UREA NITROGEN 16 mg/dl (7-20); CALCIUM 6.4 mg/dl (8.4-10.2); CARBON DIOXIDE 26 mmol/L (21-31); CHLORIDE 98 mmol/L (97-110); CREATININE 0.84 mg/dl (0.61-1.24); Estimated GFR > 60 mL/min (>60); GLUCOSE 156 mg/dl (70-220); POTASSIUM 4.1 mmol/L (3.5-5.1); SODIUM 134 mmol/L (135-144)
[2018-03-16 07:23] LABS: PHOSPHORUS 2.4 mg/dl (2.5-4.9)
[2018-03-16 07:23] LABS: MAGNESIUM 2.1 mg/dl (1.7-2.5)
[2018-03-16] MEDS ORDERED: HEPARIN 5,000 UNIT/0.5 ML VIAL ×2 (08:50→20:28)
[2018-03-16] MEDS: SUCRALFATE (100 MG/ML) 10ML CUP PO ×2 (08:58→13:00)
[2018-03-16] MEDS: SENNA TAB PO ×2 (08:58→21:10)
[2018-03-16 09:07] LABS: ALANINE AMINOTRANSFERASE 229 IU/L (13-69); ALBUMIN 2.7 g/dl (3.3-4.9); ALKALINE PHOSPHATASE 296 IU/L (42-121); ASPARTATE AMINO TRANSFERASE 205 IU/L (15-46); BILIRUBIN,INDIRECT 0.9 mg/dl (0-1.1); BILIRUBIN,TOTAL 1.5 mg/dl (0.2-1.3)
[2018-03-16 09:08] LABS: TOTAL PROTEIN 5.4 g/dl (6.1-8.1)
[2018-03-16] MEDS: HEPARIN 5,000 UNIT/1 ML VIAL SC ×2 (09:13→21:28)
[2018-03-16] MEDS: SODIUM PHOSPHATE 15 MMOL in SOD CHLORIDE 0.9% 250 ML IVPB (14:03)
[2018-03-16] MEDS: SUCRALFATE 1 GM TAB PO ×2 (18:01→21:10)
[2018-03-16] MEDS: LATANOPROST 0.005% 2.5 ML OPH BOTH EYES (21:10)
[2018-03-17] MEDS: DEXAMETHASONE 4 MG/ML 1 ML INJ IV ×3 (05:43→17:55)
[2018-03-17] MEDS: PANTOPRAZOLE 40 MG INJ IV ×2 (05:43→17:55)
[2018-03-17 06:16] LABS: ADD MAN DIFF? NO
[2018-03-17 06:18] LABS: WHITE BLOOD COUNT 9.2 10^3/ul (4.8-10.8)
[2018-03-17 06:18] LABS: ABNORMAL IP MESSAGE 1; HEMATOCRIT 33.9 % (42.0-52.0); HEMOGLOBIN 11.7 g/dl (14.0-18.0); LYMPHOCYTES # 0.6 10^3/ul (0.8-2.9); MEAN CORPUSCULAR HEMOGLOBIN 29.6 pg (29.0-33.0); MEAN CORPUSCULAR HGB CONC 34.5 g/dl (32.0-37.0); MEAN CORPUSCULAR VOLUME 85.8 fl (82.0-101.0); MEAN PLATELET VOLUME 10.7 fl (7.4-10.4); MONOCYTE # 0.6 10^3/ul (0.3-0.9); NEUTROPHIL # 8.1 10^3/ul (1.6-7.5); NEUTROPHILS % 87.1 % (39.0-77.0); PLATELET COUNT 158 10^3/UL (140-415); POSITIVE DIFF @See below; RED BLOOD COUNT 3.95 10^6/ul (4.70-6.10)
[2018-03-17 06:44] LABS: ALANINE AMINOTRANSFERASE 231 IU/L (13-69); ALBUMIN 3.1 g/dl (3.3-4.9); ALKALINE PHOSPHATASE 326 IU/L (42-121); ASPARTATE AMINO TRANSFERASE 192 IU/L (15-46); BILIRUBIN,INDIRECT 0.8 mg/dl (0-1.1); BILIRUBIN,TOTAL 1.6 mg/dl (0.2-1.3); TOTAL PROTEIN 5.9 g/dl (6.1-8.1)
[2018-03-17 06:47] LABS: ANION GAP 9 (5-13); BLOOD UREA NITROGEN 15 mg/dl (7-20); CALCIUM 6.8 mg/dl (8.4-10.2); CARBON DIOXIDE 25 mmol/L (21-31); CHLORIDE 100 mmol/L (97-110); CREATININE 0.87 mg/dl (0.61-1.24); Estimated GFR > 60 mL/min (>60); GLUCOSE 171 mg/dl (70-220); POTASSIUM 4.2 mmol/L (3.5-5.1); SODIUM 134 mmol/L (135-144)
[2018-03-17 07:12] LABS: MAGNESIUM 2.1 mg/dl (1.7-2.5)
[2018-03-17 07:12] LABS: PHOSPHORUS 1.9 mg/dl (2.5-4.9)
[2018-03-17 07:23] LABS: PROSTATE SPECIFIC ANTIGEN 0.1 ng/ml (0.0-4.0)
[2018-03-17] MEDS ORDERED: HEPARIN 5,000 UNIT/0.5 ML VIAL ×2 (08:19→20:02)
[2018-03-17] MEDS: SENNA TAB PO ×2 (10:03→20:09)
[2018-03-17] MEDS: DEXTROSE 5%-0.45% NACL 1,000 ML IV ×2 (10:03→18:00)
[2018-03-17] MEDS: NEUTRA-PHOS 250 MG PACKET PO (10:04)
[2018-03-17] MEDS: POLYETHYLENE GLYCOL 17 GM PACKET PO (10:04)
[2018-03-17] MEDS: SUCRALFATE 1 GM TAB PO ×2 (10:04→13:00)
[2018-03-17] MEDS: HEPARIN 5,000 UNIT/1 ML VIAL SC ×2 (10:22→20:09)
[2018-03-17] MEDS: SUCRALFATE (100 MG/ML) 10ML CUP PO ×2 (17:55→21:39)
[2018-03-17] MEDS: LATANOPROST 0.005% 2.5 ML OPH BOTH EYES (20:09)
[2018-03-17] MEDS: ZOLPIDEM 5 MG TAB PO (21:39)
[2018-03-18] MEDS: DEXAMETHASONE 4 MG/ML 1 ML INJ IV ×4 (00:38→18:13)
[2018-03-18] MEDS: DEXTROSE 5%-0.45% NACL 1,000 ML IV ×3 (00:38→14:50)
[2018-03-18] MEDS: PANTOPRAZOLE 40 MG INJ IV ×2 (05:23→18:13)
[2018-03-18 06:56] LABS: ALANINE AMINOTRANSFERASE 228 IU/L (13-69); ALKALINE PHOSPHATASE 321 IU/L (42-121); ASPARTATE AMINO TRANSFERASE 191 IU/L (15-46); BILIRUBIN,INDIRECT 0.9 mg/dl (0-1.1); BILIRUBIN,TOTAL 2.1 mg/dl (0.2-1.3); TOTAL PROTEIN 5.8 g/dl (6.1-8.1)
[2018-03-18] MEDS ORDERED: HEPARIN 5,000 UNIT/0.5 ML VIAL (08:28)
[2018-03-18] MEDS: HEPARIN 5,000 UNIT/1 ML VIAL SC ×2 (09:00→21:00)
[2018-03-18] MEDS: ONDANSETRON 4 MG INJ IV (09:41)
[2018-03-18] MEDS: SENNA TAB PO ×2 (09:45→21:00)
[2018-03-18] MEDS: SUCRALFATE (100 MG/ML) 10ML CUP PO ×4 (09:45→21:00)
[2018-03-18] MEDS: POLYETHYLENE GLYCOL 17 GM PACKET PO (09:45)
[2018-03-18] MEDS: METOCLOPRAMIDE 10 MG INJ IV ×2 (12:46→18:14)
[2018-03-18] MEDS: ZOLPIDEM 5 MG TAB PO (21:24)
[2018-03-18] MEDS: LATANOPROST 0.005% 2.5 ML OPH BOTH EYES (21:26)
[2018-03-19] MEDS: DEXAMETHASONE 4 MG/ML 1 ML INJ IV ×4 (00:14→18:00)
[2018-03-19] MEDS: METOCLOPRAMIDE 10 MG INJ IV ×5 (00:43→23:41)
[2018-03-19] MEDS: PANTOPRAZOLE 40 MG INJ IV (05:10)
[2018-03-19] MEDS: DEXTROSE 5%-0.45% NACL 1,000 ML IV ×5 (05:11→23:08)
[2018-03-19] MEDS ORDERED: HEPARIN 5,000 UNIT/0.5 ML VIAL ×2 (08:45→20:39)
[2018-03-19] MEDS: SUCRALFATE (100 MG/ML) 10ML CUP PO ×4 (08:51→20:44)
[2018-03-19] MEDS: SENNA TAB PO ×2 (08:51→20:44)
[2018-03-19] MEDS: POLYETHYLENE GLYCOL 17 GM PACKET PO (08:52)
[2018-03-19] MEDS: HEPARIN 5,000 UNIT/1 ML VIAL SC ×2 (09:05→21:22)
[2018-03-19 10:31] LABS: ADD MAN DIFF? NO
[2018-03-19 10:40] LABS: ABNORMAL IP MESSAGE 1; BASOPHILS % 0.1 % (0.0-2.0); HEMATOCRIT 34.6 % (42.0-52.0); HEMOGLOBIN 11.4 g/dl (14.0-18.0); LYMPHOCYTES # 0.5 10^3/ul (0.8-2.9); MEAN CORPUSCULAR HEMOGLOBIN 28.7 pg (29.0-33.0); MEAN CORPUSCULAR HGB CONC 32.9 g/dl (32.0-37.0); MEAN CORPUSCULAR VOLUME 87.2 fl (82.0-101.0); MEAN PLATELET VOLUME 11.1 fl (7.4-10.4); MONOCYTE # 0.5 10^3/ul (0.3-0.9); MONOCYTES % 6.3 % (0.0-11.0); NEUTROPHIL # 7.3 10^3/ul (1.6-7.5); NEUTROPHILS % 86.9 % (39.0-77.0); PLATELET COUNT 180 10^3/UL (140-415); POSITIVE DIFF @See below; RED BLOOD COUNT 3.97 10^6/ul (4.70-6.10); RED CELL DISTRIBUTION WIDTH 17.3 % (11.5-14.5)
[2018-03-19 10:40] LABS: WHITE BLOOD COUNT 8.4 10^3/ul (4.8-10.8)
[2018-03-19 11:09] LABS: ALANINE AMINOTRANSFERASE 231 IU/L (13-69); ALBUMIN 2.9 g/dl (3.3-4.9); ALBUMIN/GLOBULIN RATIO 0.96; ALKALINE PHOSPHATASE 341 IU/L (42-121); ANION GAP 8 (5-13); ASPARTATE AMINO TRANSFERASE 235 IU/L (15-46); BILIRUBIN,INDIRECT 1.1 mg/dl (0-1.1); BILIRUBIN,TOTAL 2.8 mg/dl (0.2-1.3); BLOOD UREA NITROGEN 13 mg/dl (7-20); CALCIUM 6.5 mg/dl (8.4-10.2); CARBON DIOXIDE 26 mmol/L (21-31); CHLORIDE 100 mmol/L (97-110); CREATININE 0.87 mg/dl (0.61-1.24); Estimated GFR > 60 mL/min (>60); GLUCOSE 153 mg/dl (70-220); PHOSPHORUS 1.3 mg/dl (2.5-4.9); POTASSIUM 4.4 mmol/L (3.5-5.1); SODIUM 134 mmol/L (135-144); TOTAL PROTEIN 5.9 g/dl (6.1-8.1)
[2018-03-19] MEDS ORDERED: LORAZEPAM 1 MG TAB (18:18)
[2018-03-19] MEDS: LORAZEPAM 1 MG TAB PO (18:25)
[2018-03-19] MEDS: LATANOPROST 0.005% 2.5 ML OPH BOTH EYES (20:44)
[2018-03-19] MEDS: ZOLPIDEM 5 MG TAB PO (20:44)
[2018-03-19] MEDS ORDERED: LORAZEPAM 1 MG TAB PO (22:00)
[2018-03-19] MEDS ORDERED: ZOLPIDEM 5 MG TAB PO (23:00)
[2018-03-20] MEDS: DEXAMETHASONE 4 MG/ML 1 ML INJ IV ×2 (00:32→06:20)
[2018-03-20] MEDS: LORAZEPAM 1 MG TAB PO (04:37)
[2018-03-20 05:25] LABS: ADD MAN DIFF? NO
[2018-03-20 05:33] LABS: ABNORMAL IP MESSAGE 1; BASOPHILS % 0.1 % (0.0-2.0); HEMATOCRIT 36.5 % (42.0-52.0); HEMOGLOBIN 12.1 g/dl (14.0-18.0); LYMPHOCYTES # 0.4 10^3/ul (0.8-2.9); MEAN CORPUSCULAR HEMOGLOBIN 28.9 pg (29.0-33.0); MEAN CORPUSCULAR HGB CONC 33.2 g/dl (32.0-37.0); MEAN CORPUSCULAR VOLUME 87.3 fl (82.0-101.0); MEAN PLATELET VOLUME 11.1 fl (7.4-10.4); MONOCYTE # 0.5 10^3/ul (0.3-0.9); NEUTROPHIL # 7.3 10^3/ul (1.6-7.5); NEUTROPHILS % 87.6 % (39.0-77.0); PLATELET COUNT 191 10^3/UL (140-415); POSITIVE DIFF @See below; RED BLOOD COUNT 4.18 10^6/ul (4.70-6.10); RED CELL DISTRIBUTION WIDTH 17.5 % (11.5-14.5)
[2018-03-20 05:33] LABS: WHITE BLOOD COUNT 8.4 10^3/ul (4.8-10.8)
[2018-03-20 05:52] LABS: INR 1.28; PROTIME 16.2 Sec (11.9-14.9); PT RATIO 1.3
[2018-03-20 05:52] LABS: PHOSPHORUS 1.2 mg/dl (2.5-4.9)
[2018-03-20 05:53] LABS: ALANINE AMINOTRANSFERASE 250 IU/L (13-69); ALBUMIN/GLOBULIN RATIO 0.96; ALKALINE PHOSPHATASE 362 IU/L (42-121); ANION GAP 13 (5-13); ASPARTATE AMINO TRANSFERASE 284 IU/L (15-46); BILIRUBIN,INDIRECT 1.3 mg/dl (0-1.1); BILIRUBIN,TOTAL 3.5 mg/dl (0.2-1.3); BLOOD UREA NITROGEN 14 mg/dl (7-20); CALCIUM 6.6 mg/dl (8.4-10.2); CARBON DIOXIDE 24 mmol/L (21-31); CHLORIDE 99 mmol/L (97-110); CREATININE 0.91 mg/dl (0.61-1.24); Estimated GFR > 60 mL/min (>60); GLUCOSE 164 mg/dl (70-220); POTASSIUM 4.2 mmol/L (3.5-5.1); SODIUM 136 mmol/L (135-144); TOTAL PROTEIN 6.1 g/dl (6.1-8.1)
[2018-03-20] MEDS: PANTOPRAZOLE (EC) 40 MG TAB PO (06:18)
[2018-03-20] MEDS: METOCLOPRAMIDE 10 MG INJ IV ×2 (06:19→14:29)
[2018-03-20 06:24] LABS: HEPATITIS B SURFACE ANTIGEN NEGATIVE (NEGATIVE)
[2018-03-20 06:41] LABS: HEPATITIS C VIRAL ANTIBODY NEGATIVE (NEGATIVE)
[2018-03-20 06:42] LABS: HEPATITIS B SURFACE ANTIBODY NEGATIVE (NEGATIVE)
[2018-03-20] MEDS ORDERED: HEPARIN 5,000 UNIT/0.5 ML VIAL ×3 (08:22→21:02)
[2018-03-20] MEDS: DEXTROSE 5%-0.45% NACL 1,000 ML IV (11:00)
[2018-03-20] MEDS: SENNA TAB PO ×2 (11:03→21:00)
[2018-03-20] MEDS: SUCRALFATE (100 MG/ML) 10ML CUP PO ×4 (11:03→21:11)
[2018-03-20] MEDS: POLYETHYLENE GLYCOL 17 GM PACKET PO (11:03)
[2018-03-20] MEDS: HEPARIN 5,000 UNIT/1 ML VIAL SC ×2 (11:04→14:25)
[2018-03-20] MEDS: MINERAL OIL 30ML CUP PO (17:29)
[2018-03-20] MEDS: METOCLOPRAMIDE 5 MG TAB PO (21:11)
[2018-03-20] MEDS: LATANOPROST 0.005% 2.5 ML OPH BOTH EYES (21:55)
[2018-03-20] MEDS: ONDANSETRON 4 MG INJ IV (22:05)
[2018-03-20] MEDS: HYOSCYAMINE 0.125 MG TAB PO (22:15)
[2018-03-21 05:23] LABS: ADD MAN DIFF? NO
[2018-03-21 05:28] LABS: WHITE BLOOD COUNT 7.5 10^3/ul (4.8-10.8)
[2018-03-21 05:28] LABS: ABNORMAL IP MESSAGE 1; BASOPHILS % 0.1 % (0.0-2.0); EOSINOPHILS % 0.5 % (0.0-7.0); HEMATOCRIT 33.9 % (42.0-52.0); HEMOGLOBIN 11.6 g/dl (14.0-18.0); LYMPHOCYTES # 0.6 10^3/ul (0.8-2.9); LYMPHOCYTES % 7.6 % (15.0-51.0); MEAN CORPUSCULAR HEMOGLOBIN 29.3 pg (29.0-33.0); MEAN CORPUSCULAR HGB CONC 34.2 g/dl (32.0-37.0); MEAN CORPUSCULAR VOLUME 85.6 fl (82.0-101.0); MEAN PLATELET VOLUME 10.6 fl (7.4-10.4); MONOCYTE # 0.6 10^3/ul (0.3-0.9); MONOCYTES % 7.3 % (0.0-11.0); NEUTROPHIL # 6.2 10^3/ul (1.6-7.5); NEUTROPHILS % 82.9 % (39.0-77.0); PLATELET COUNT 174 10^3/UL (140-415); POSITIVE DIFF @See below; RED BLOOD COUNT 3.96 10^6/ul (4.70-6.10); RED CELL DISTRIBUTION WIDTH 17.6 % (11.5-14.5)
[2018-03-21] MEDS: PANTOPRAZOLE (EC) 40 MG TAB PO (06:00)
[2018-03-21 06:05] LABS: PHOSPHORUS 0.8 mg/dl (2.5-4.9)
[2018-03-21 06:05] LABS: MAGNESIUM 1.9 mg/dl (1.7-2.5)
[2018-03-21 06:21] LABS: ALANINE AMINOTRANSFERASE 224 IU/L (13-69); ALBUMIN 2.8 g/dl (3.3-4.9); ALBUMIN/GLOBULIN RATIO 1.07; ALKALINE PHOSPHATASE 336 IU/L (42-121); ANION GAP 8 (5-13); ASPARTATE AMINO TRANSFERASE 233 IU/L (15-46); BILIRUBIN,INDIRECT 1.3 mg/dl (0-1.1); BILIRUBIN,TOTAL 4.1 mg/dl (0.2-1.3); BLOOD UREA NITROGEN 14 mg/dl (7-20); CALCIUM 6.5 mg/dl (8.4-10.2); CARBON DIOXIDE 25 mmol/L (21-31); CHLORIDE 98 mmol/L (97-110); CREATININE 0.86 mg/dl (0.61-1.24); Estimated GFR > 60 mL/min (>60); GLUCOSE 115 mg/dl (70-220); POTASSIUM 4.1 mmol/L (3.5-5.1); SODIUM 131 mmol/L (135-144); TOTAL PROTEIN 5.4 g/dl (6.1-8.1)
[2018-03-21] MEDS ORDERED: HEPARIN 5,000 UNIT/0.5 ML VIAL (08:25)
[2018-03-21] MEDS: POLYETHYLENE GLYCOL 17 GM PACKET PO (09:00)
[2018-03-21] MEDS: SENNA TAB PO (09:07)
[2018-03-21] MEDS: predniSONE 50 MG TAB PO (09:07)
[2018-03-21] MEDS: predniSONE 20 MG TAB PO (09:07)
[2018-03-21] MEDS: METOCLOPRAMIDE 5 MG TAB PO ×2 (09:07→13:40)
[2018-03-21] MEDS: SUCRALFATE (100 MG/ML) 10ML CUP PO ×3 (09:08→17:00)
[2018-03-21] MEDS: HEPARIN 5,000 UNIT/1 ML VIAL SC (09:09)
[2018-03-21] MEDS ORDERED: MEGESTROL (40 MG/ML) 10ML CUP PO (21:00)
== END 2018-03-21 18:15 | DRG 374 ==
LOC: E/R 09:49 → MS1 03-19 22:05 → TEL 10:56
DX: C78.5 Secondary malignant neoplasm of large intestine and rectum (principal); E43 Unspecified severe protein-calorie malnutrition; C7A.1 Malignant poorly differentiated neuroendocrine tumors; N17.9 Acute kidney failure, unspecified; K56.7 Ileus, unspecified; C78.7 Secondary malignant neoplasm of liver and intrahepatic bile duct; C77.9 Secondary and unspecified malignant neoplasm of lymph node, unspecified; C79.51 Secondary malignant neoplasm of bone; C34.90 Malignant neoplasm of unspecified part of unspecified bronchus or lung; C61 Malignant neoplasm of prostate; K59.00 Constipation, unspecified; N31.2 Flaccid neuropathic bladder, not elsewhere classified; R39.11 Hesitancy of micturition; R07.9 Chest pain, unspecified; R00.2 Palpitations; R53.83 Other fatigue; T45.1X5A Adverse effect of antineoplastic and immunosuppressive drugs, initial encounter; R74.0 Nonspecific elevation of levels of transaminase and lactic acid dehydrogenase [LDH]; Z68.22 Body mass index [BMI] 22.0-22.9, adult
CPT/HCPCS: 36415; 71045; 72197; 74018; 74177; 74181; 74270; 80048; 80053; 80076; 81003; 82150; 83690; 83735; 84100; 84153; 84154; 84484; 85025; 85610; 85730; 86706; 86803; 86850; 86900; 86901; 87040; 87086; 87340; 93005; 93306; 97116; 97162; 97530; 99285-25

== ENCOUNTER 2018-03-29 17:19 | Inpatient (IN) | payer OTHER ==
[2018-03-29] MEDS: SOD CHLORIDE 0.9% 1,000 ML IV (17:54)
[2018-03-29 17:59] LABS: ADD MAN DIFF? NO
[2018-03-29 18:07] LABS: ABNORMAL IP MESSAGE 1; BASOPHILS % 0.1 % (0.0-2.0); HEMATOCRIT 34.4 % (42.0-52.0); HEMOGLOBIN 12.3 g/dl (14.0-18.0); LYMPHOCYTES # 0.2 10^3/ul (0.8-2.9); LYMPHOCYTES % 2.3 % (15.0-51.0); MEAN CORPUSCULAR HEMOGLOBIN 29.1 pg (29.0-33.0); MEAN CORPUSCULAR HGB CONC 35.8 g/dl (32.0-37.0); MEAN CORPUSCULAR VOLUME 81.5 fl (82.0-101.0); MEAN PLATELET VOLUME 10.4 fl (7.4-10.4); MONOCYTE # 0.5 10^3/ul (0.3-0.9); MONOCYTES % 5.1 % (0.0-11.0); NEUTROPHIL # 8.3 10^3/ul (1.6-7.5); NEUTROPHILS % 91.5 % (39.0-77.0); NUCLEATED RED BLOOD CELLS # 0.1 10^3/ul (0.0-0.0); NUCLEATED RED BLOOD CELLS% 0.7 /100WBC (0.0-0.0); PLATELET COUNT 145 10^3/UL (140-415); POSITIVE DIFF @See below; RED BLOOD COUNT 4.22 10^6/ul (4.70-6.10); RED CELL DISTRIBUTION WIDTH 21.2 % (11.5-14.5)
[2018-03-29 18:22] LABS: PROTIME 19.4 Sec (11.9-14.9); PT RATIO 1.5
[2018-03-29 18:23] LABS: PARTIAL THROMBOPLASTIN TIME 28.7 Sec (23.0-35.0)
[2018-03-29 18:27] LABS: ALANINE AMINOTRANSFERASE 941 IU/L (13-69); ALBUMIN 2.8 g/dl (3.3-4.9); ALBUMIN/GLOBULIN RATIO 0.87; ALKALINE PHOSPHATASE 617 IU/L (42-121); ANION GAP 12 (5-13); BILIRUBIN,INDIRECT 2.1 mg/dl (0-1.1); BILIRUBIN,TOTAL 8.6 mg/dl (0.2-1.3); BLOOD UREA NITROGEN 37 mg/dl (7-20); CALCIUM 7.2 mg/dl (8.4-10.2); CARBON DIOXIDE 23 mmol/L (21-31); CHLORIDE 100 mmol/L (97-110); CREATININE 0.78 mg/dl (0.61-1.24); Estimated GFR > 60 mL/min (>60); GLUCOSE 119 mg/dl (70-220); LIPASE 263 U/L (23-300); POTASSIUM 5.3 mmol/L (3.5-5.1); SODIUM 135 mmol/L (135-144)
[2018-03-29 18:28] LABS: AMMONIA 40 umol/l (9-30)
[2018-03-29 18:35] LABS: ASPARTATE AMINO TRANSFERASE 1379 IU/L (15-46)
[2018-03-29 18:37] LABS: LACTIC ACID 2.6 mmol/L (0.5-2.0)
[2018-03-29 18:38] LABS: TROPONIN-I 0.024 ng/ml (0.000-0.120)
[2018-03-29] MEDS ORDERED: ACETAMINOPHEN 325 MG TAB PO (19:30)
[2018-03-29] MEDS ORDERED: ONDANSETRON 4 MG INJ IV ×2 (19:30→20:30)
[2018-03-29] MEDS: LACTULOSE 30ML CUP PO (19:41)
[2018-03-29] MEDS ORDERED: NACL 0.9% 3 ML SYG IV (20:30)
[2018-03-29] MEDS ORDERED: BISACODYL (EC) 5 MG TAB PO (20:30)
[2018-03-29] MEDS ORDERED: DOCUSATE SODIUM 100 MG CAP PO (20:30)
[2018-03-29 20:44] LABS: LACTIC ACID 2.4 mmol/L (0.5-2.0)
[2018-03-29] MEDS ORDERED: LORAZEPAM 1 MG TAB PO (21:00)
[2018-03-29] MEDS: MAGNESIUM HYDROXIDE 30ML CUP PO (22:21)
[2018-03-29] MEDS: SUCRALFATE (100 MG/ML) 10ML CUP PO (22:21)
[2018-03-29] MEDS: predniSONE 20 MG TAB PO (22:22)
[2018-03-29] MEDS: HYOSCYAMINE 0.125 MG TAB PO (22:22)
[2018-03-29] MEDS: SOD CHLORIDE 0.9% 540 ML IV (22:23)
[2018-03-29] MEDS: SENNA TAB PO (22:23)
[2018-03-29] MEDS: MINERAL OIL 133 ML ENEMA PR (22:47)
[2018-03-29] MEDS: LATANOPROST 0.005% 2.5 ML OPH BOTH EYES (22:47)
[2018-03-29] MEDS: ALBUMIN HUMAN 25% 100 ML IV (23:32)
[2018-03-29 23:53] LABS: LACTIC ACID 2.3 mmol/L (0.5-2.0)
[2018-03-30] MEDS ORDERED: VITAMIN A & D 5 GM OINT PACKET TOP (02:55)
[2018-03-30] MEDS: MAGNESIUM HYDROXIDE 30ML CUP PO ×4 (03:00→21:00)
[2018-03-30] MEDS: HYOSCYAMINE 0.125 MG TAB PO ×4 (03:00→21:00)
[2018-03-30] MEDS: PANTOPRAZOLE (EC) 40 MG TAB PO ×2 (06:00→09:16)
[2018-03-30 06:19] LABS: ADD MAN DIFF? NO
[2018-03-30] MEDS: SOD CHLORIDE 0.9% 500 ML IV (06:26)
[2018-03-30 06:28] LABS: WHITE BLOOD COUNT 7.8 10^3/ul (4.8-10.8)
[2018-03-30 06:28] LABS: ABNORMAL IP MESSAGE 1; BASOPHILS % 0.1 % (0.0-2.0); EOSINOPHILS % 0.1 % (0.0-7.0); HEMATOCRIT 31.2 % (42.0-52.0); HEMOGLOBIN 11.3 g/dl (14.0-18.0); LYMPHOCYTES # 0.2 10^3/ul (0.8-2.9); LYMPHOCYTES % 2.7 % (15.0-51.0); MEAN CORPUSCULAR HEMOGLOBIN 29.4 pg (29.0-33.0); MEAN CORPUSCULAR HGB CONC 36.2 g/dl (32.0-37.0); MEAN CORPUSCULAR VOLUME 81.3 fl (82.0-101.0); MEAN PLATELET VOLUME 10.8 fl (7.4-10.4); MONOCYTE # 0.5 10^3/ul (0.3-0.9); MONOCYTES % 6.1 % (0.0-11.0); NEUTROPHIL # 7.1 10^3/ul (1.6-7.5); NUCLEATED RED BLOOD CELLS% 0.4 /100WBC (0.0-0.0); POSITIVE DIFF @See below; RED BLOOD COUNT 3.84 10^6/ul (4.70-6.10); RED CELL DISTRIBUTION WIDTH 21.9 % (11.5-14.5)
[2018-03-30 06:44] LABS: AMMONIA 38 umol/l (9-30)
[2018-03-30 06:44] LABS: PLATELET COUNT 91 10^3/UL (140-415)
[2018-03-30 06:52] LABS: ALANINE AMINOTRANSFERASE 718 IU/L (13-69); ALBUMIN/GLOBULIN RATIO 0.96; ALKALINE PHOSPHATASE 514 IU/L (42-121); ANION GAP 13 (5-13); BILIRUBIN,INDIRECT 2.2 mg/dl (0-1.1); BILIRUBIN,TOTAL 8.8 mg/dl (0.2-1.3); BLOOD UREA NITROGEN 35 mg/dl (7-20); CALCIUM 6.9 mg/dl (8.4-10.2); CARBON DIOXIDE 22 mmol/L (21-31); CHLORIDE 105 mmol/L (97-110); CREATININE 0.83 mg/dl (0.61-1.24); Estimated GFR > 60 mL/min (>60); GLUCOSE 128 mg/dl (70-220); POTASSIUM 4.8 mmol/L (3.5-5.1); SODIUM 140 mmol/L (135-144); TOTAL PROTEIN 6.1 g/dl (6.1-8.1)
[2018-03-30 07:08] LABS: LACTIC ACID 2.4 mmol/L (0.5-2.0)
[2018-03-30 07:14] LABS: HEMOGLOBIN A1C 5.9 % (0-5.9)
[2018-03-30 07:38] LABS: ASPARTATE AMINO TRANSFERASE 879 IU/L (15-46)
[2018-03-30 08:56] LABS: ANISOCYTOSIS 3+ (0-0); BAND NEUTROPHILS #M 0.7 10^3/ul (0.0-0.6); BAND NEUTROPHILS % (M) 9 % (0-4); LYMPHOCYTES % (M) 1 % (15-51); MONOCYTE #M 0.3 10^3/ul (0.3-0.9); MONOCYTES % (M) 5 % (0-11); PLATELET ESTIMATE DECREASED; POIKILOCYTOSIS 2+ (0-0); SEG NEUT #M 6.7 10^3/ul (1.6-7.5); SEGMENTED NEUTROPHILS (M) % 85 % (39-77)
[2018-03-30] MEDS ORDERED: PENDING SANTYL ORDER FOR WOUND CARE XX (09:00)
[2018-03-30] MEDS ORDERED: ENOXAPARIN 30 MG/0.3 ML SYG SC (09:00)
[2018-03-30] MEDS: LACTULOSE 30ML CUP PO ×2 (09:00→09:17)
[2018-03-30] MEDS: METOCLOPRAMIDE 5 MG TAB PO ×3 (09:16→17:14)
[2018-03-30] MEDS: SENNA TAB PO ×2 (09:16→21:00)
[2018-03-30] MEDS: SUCRALFATE (100 MG/ML) 10ML CUP PO ×4 (09:17→21:00)
[2018-03-30] MEDS ORDERED: ONDANSETRON 4 MG INJ IV (19:30)
[2018-03-30] MEDS ORDERED: LORAZEPAM 1 MG TAB PO (19:30)
[2018-03-30] MEDS: LATANOPROST 0.005% 2.5 ML OPH BOTH EYES (21:00)
[2018-03-30] MEDS: MINERAL OIL 133 ML ENEMA PR (21:00)
[2018-03-31] MEDS: MAGNESIUM HYDROXIDE 30ML CUP PO ×4 (03:00→21:00)
[2018-03-31] MEDS: HYOSCYAMINE 0.125 MG TAB PO ×4 (03:00→21:00)
[2018-03-31 05:01] LABS: ADD MAN DIFF? NO
[2018-03-31 05:12] LABS: ABNORMAL IP MESSAGE 1; BASOPHILS % 0.2 % (0.0-2.0); HEMATOCRIT 37.3 % (42.0-52.0); HEMOGLOBIN 13.5 g/dl (14.0-18.0); LYMPHOCYTES # 0.5 10^3/ul (0.8-2.9); MEAN CORPUSCULAR HEMOGLOBIN 29.2 pg (29.0-33.0); MEAN CORPUSCULAR HGB CONC 36.2 g/dl (32.0-37.0); MEAN CORPUSCULAR VOLUME 80.6 fl (82.0-101.0); MONOCYTE # 0.8 10^3/ul (0.3-0.9); MONOCYTES % 8.1 % (0.0-11.0); NEUTROPHIL # 8.4 10^3/ul (1.6-7.5); NEUTROPHILS % 84.9 % (39.0-77.0); NUCLEATED RED BLOOD CELLS # 0.1 10^3/ul (0.0-0.0); PLATELET COUNT 150 10^3/UL (140-415); POSITIVE DIFF @See below; RED BLOOD COUNT 4.63 10^6/ul (4.70-6.10); RED CELL DISTRIBUTION WIDTH 22.3 % (11.5-14.5)
[2018-03-31 05:23] LABS: INR 1.41; PROTIME 17.5 Sec (11.9-14.9); PT RATIO 1.4
[2018-03-31 05:33] LABS: ALANINE AMINOTRANSFERASE 630 IU/L (13-69); ALBUMIN 3.4 g/dl (3.3-4.9); ALKALINE PHOSPHATASE 581 IU/L (42-121); ANION GAP 10 (5-13); ASPARTATE AMINO TRANSFERASE 616 IU/L (15-46); BILIRUBIN,INDIRECT 2.7 mg/dl (0-1.1); BILIRUBIN,TOTAL 10.9 mg/dl (0.2-1.3); BLOOD UREA NITROGEN 33 mg/dl (7-20); CALCIUM 7.5 mg/dl (8.4-10.2); CARBON DIOXIDE 28 mmol/L (21-31); CHLORIDE 100 mmol/L (97-110); CREATININE 0.91 mg/dl (0.61-1.24); Estimated GFR > 60 mL/min (>60); GLUCOSE 125 mg/dl (70-220); POTASSIUM 4.7 mmol/L (3.5-5.1); SODIUM 138 mmol/L (135-144); TOTAL PROTEIN 6.8 g/dl (6.1-8.1)
[2018-03-31 05:58] LABS: THYROID STIMULATING HORMONE 0.976 MIU/L (0.465-4.680)
[2018-03-31] MEDS: METOCLOPRAMIDE 5 MG TAB PO ×3 (07:20→17:18)
[2018-03-31] MEDS: SENNA TAB PO ×2 (09:00→21:00)
[2018-03-31] MEDS: SUCRALFATE (100 MG/ML) 10ML CUP PO ×4 (09:00→21:00)
[2018-03-31] MEDS: LACTULOSE 30ML CUP PO (09:00)
[2018-03-31] MEDS ORDERED: LIDOCAINE 2% VISC 15 ML CUP PO (11:00)
[2018-03-31] MEDS: LORAZEPAM 2 MG INJ IV (12:20)
[2018-03-31] MEDS: NYSTATIN SUSP 5 ML CUP PO ×3 (12:37→21:00)
[2018-03-31] MEDS ORDERED: VITAMIN A & D 5 GM OINT PACKET TOP (16:38)
[2018-03-31] MEDS: MINERAL OIL 133 ML ENEMA PR (21:00)
[2018-03-31] MEDS: LATANOPROST 0.005% 2.5 ML OPH BOTH EYES (21:21)
[2018-04-01] MEDS: MAGNESIUM HYDROXIDE 30ML CUP PO ×4 (03:00→20:54)
[2018-04-01] MEDS: HYOSCYAMINE 0.125 MG TAB PO ×4 (03:00→20:54)
[2018-04-01 05:37] LABS: ADD MAN DIFF? NO
[2018-04-01 05:44] LABS: AMMONIA 21 umol/l (9-30)
[2018-04-01 05:48] LABS: ABNORMAL IP MESSAGE 1; BASOPHILS % 0.2 % (0.0-2.0); HEMATOCRIT 37.2 % (42.0-52.0); HEMOGLOBIN 13.4 g/dl (14.0-18.0); LYMPHOCYTES # 0.3 10^3/ul (0.8-2.9); LYMPHOCYTES % 3.8 % (15.0-51.0); MEAN CORPUSCULAR VOLUME 80.5 fl (82.0-101.0); MEAN PLATELET VOLUME 10.6 fl (7.4-10.4); MONOCYTE # 0.6 10^3/ul (0.3-0.9); MONOCYTES % 7.5 % (0.0-11.0); NEUTROPHIL # 7.3 10^3/ul (1.6-7.5); NEUTROPHILS % 86.2 % (39.0-77.0); NUCLEATED RED BLOOD CELLS # 0.1 10^3/ul (0.0-0.0); NUCLEATED RED BLOOD CELLS% 1.1 /100WBC (0.0-0.0); PLATELET COUNT 129 10^3/UL (140-415); POSITIVE DIFF @See below; RED BLOOD COUNT 4.62 10^6/ul (4.70-6.10); RED CELL DISTRIBUTION WIDTH 22.8 % (11.5-14.5)
[2018-04-01 05:48] LABS: WHITE BLOOD COUNT 8.4 10^3/ul (4.8-10.8)
[2018-04-01 05:53] LABS: PROTIME 19.4 Sec (11.9-14.9); PT RATIO 1.5
[2018-04-01 05:54] LABS: PARTIAL THROMBOPLASTIN TIME 29.9 Sec (23.0-35.0)
[2018-04-01] MEDS: PANTOPRAZOLE (EC) 40 MG TAB PO (05:55)
[2018-04-01 05:59] LABS: MAGNESIUM 2.6 mg/dl (1.7-2.5)
[2018-04-01 05:59] LABS: PHOSPHORUS 1.3 mg/dl (2.5-4.9)
[2018-04-01 06:10] LABS: ALANINE AMINOTRANSFERASE 478 IU/L (13-69); ALBUMIN 2.9 g/dl (3.3-4.9); ALBUMIN/GLOBULIN RATIO 0.87; ALKALINE PHOSPHATASE 544 IU/L (42-121); ANION GAP 11 (5-13); ASPARTATE AMINO TRANSFERASE 473 IU/L (15-46); BILIRUBIN,INDIRECT 2.4 mg/dl (0-1.1); BILIRUBIN,TOTAL 10.9 mg/dl (0.2-1.3); BLOOD UREA NITROGEN 32 mg/dl (7-20); CARBON DIOXIDE 25 mmol/L (21-31); CHLORIDE 104 mmol/L (97-110); CREATININE 0.81 mg/dl (0.61-1.24); Estimated GFR > 60 mL/min (>60); GLUCOSE 96 mg/dl (70-220); POTASSIUM 4.9 mmol/L (3.5-5.1); SODIUM 140 mmol/L (135-144); TOTAL PROTEIN 6.2 g/dl (6.1-8.1)
[2018-04-01] MEDS: METOCLOPRAMIDE 5 MG TAB PO ×3 (07:20→17:25)
[2018-04-01] MEDS: LACTULOSE 30ML CUP PO (09:00)
[2018-04-01] MEDS: SUCRALFATE (100 MG/ML) 10ML CUP PO ×4 (09:00→20:54)
[2018-04-01] MEDS: NYSTATIN SUSP 5 ML CUP PO ×4 (09:00→20:54)
[2018-04-01] MEDS: SENNA TAB PO ×2 (09:00→20:54)
[2018-04-01] MEDS: SODIUM PHOSPHATE 15 MMOL in SOD CHLORIDE 0.9% 250 ML IVPB (15:03)
[2018-04-01] MEDS: LATANOPROST 0.005% 2.5 ML OPH BOTH EYES (20:54)
[2018-04-01] MEDS: MINERAL OIL 133 ML ENEMA PR (20:55)
[2018-04-02] MEDS: MAGNESIUM HYDROXIDE 30ML CUP PO ×4 (02:50→21:00)
[2018-04-02] MEDS: HYOSCYAMINE 0.125 MG TAB PO ×4 (02:50→21:00)
[2018-04-02 05:35] LABS: ADD MAN DIFF? NO
[2018-04-02] MEDS: PANTOPRAZOLE (EC) 40 MG TAB PO (05:40)
[2018-04-02 05:48] LABS: ABNORMAL IP MESSAGE 1; BASOPHILS % 0.4 % (0.0-2.0); HEMATOCRIT 34.3 % (42.0-52.0); HEMOGLOBIN 12.7 g/dl (14.0-18.0); LYMPHOCYTES # 0.4 10^3/ul (0.8-2.9); LYMPHOCYTES % 5.1 % (15.0-51.0); MEAN CORPUSCULAR HEMOGLOBIN 29.5 pg (29.0-33.0); MEAN CORPUSCULAR VOLUME 79.6 fl (82.0-101.0); MEAN PLATELET VOLUME 11.8 fl (7.4-10.4); MONOCYTE # 0.7 10^3/ul (0.3-0.9); MONOCYTES % 8.3 % (0.0-11.0); NEUTROPHIL # 6.5 10^3/ul (1.6-7.5); NUCLEATED RED BLOOD CELLS # 0.1 10^3/ul (0.0-0.0); PLATELET COUNT 132 10^3/UL (140-415); POSITIVE DIFF @See below; RED BLOOD COUNT 4.31 10^6/ul (4.70-6.10); RED CELL DISTRIBUTION WIDTH 23.3 % (11.5-14.5)
[2018-04-02 05:48] LABS: WHITE BLOOD COUNT 7.9 10^3/ul (4.8-10.8)
[2018-04-02 05:58] LABS: ALANINE AMINOTRANSFERASE 514 IU/L (13-69); ALBUMIN 2.7 g/dl (3.3-4.9); ALKALINE PHOSPHATASE 464 IU/L (42-121); ANION GAP 12 (5-13); BILIRUBIN,INDIRECT 2.5 mg/dl (0-1.1); BILIRUBIN,TOTAL 11.3 mg/dl (0.2-1.3); BLOOD UREA NITROGEN 38 mg/dl (7-20); CALCIUM 6.8 mg/dl (8.4-10.2); CARBON DIOXIDE 24 mmol/L (21-31); CHLORIDE 104 mmol/L (97-110); CREATININE 0.97 mg/dl (0.61-1.24); Estimated GFR > 60 mL/min (>60); GLUCOSE 85 mg/dl (70-220); POTASSIUM 5.2 mmol/L (3.5-5.1); SODIUM 140 mmol/L (135-144); TOTAL PROTEIN 5.7 g/dl (6.1-8.1)
[2018-04-02 05:59] LABS: INR 1.94; PROTIME 22.6 Sec (11.9-14.9); PT RATIO 1.8
[2018-04-02 06:00] LABS: PARTIAL THROMBOPLASTIN TIME 32.6 Sec (23.0-35.0)
[2018-04-02] MEDS: SOD CHLORIDE 0.9% 1,000 ML IV (06:03)
[2018-04-02] MEDS: PANTOPRAZOLE 40 MG INJ IV (06:04)
[2018-04-02 06:08] LABS: ASPARTATE AMINO TRANSFERASE 942 IU/L (15-46)
[2018-04-02 06:28] LABS: AMMONIA 35 umol/l (9-30)
[2018-04-02 07:21] LABS: MAGNESIUM 2.8 mg/dl (1.7-2.5)
[2018-04-02 07:21] LABS: PHOSPHORUS 2.2 mg/dl (2.5-4.9)
[2018-04-02] MEDS: LACTULOSE 30ML CUP PO (09:00)
[2018-04-02] MEDS: SUCRALFATE (100 MG/ML) 10ML CUP PO ×4 (09:00→21:00)
[2018-04-02] MEDS: SENNA TAB PO ×2 (09:00→21:00)
[2018-04-02] MEDS: NYSTATIN SUSP 5 ML CUP PO ×4 (09:00→21:00)
[2018-04-02] MEDS: SODIUM PHOSPHATE 15 MMOL in SOD CHLORIDE 0.9% 250 ML IVPB (10:23)
[2018-04-02] MEDS: FUROSEMIDE 20 MG INJ IV (10:24)
[2018-04-02] MEDS: METOCLOPRAMIDE 10 MG INJ IV ×2 (12:16→18:00)
[2018-04-02] MEDS: MINERAL OIL 133 ML ENEMA PR (21:00)
[2018-04-02] MEDS: LATANOPROST 0.005% 2.5 ML OPH BOTH EYES (21:00)
[2018-04-03] MEDS: METOCLOPRAMIDE 10 MG INJ IV ×4 (00:39→18:00)
[2018-04-03] MEDS: SOD CHLORIDE 0.9% 1,000 ML IV ×2 (02:00→22:00)
[2018-04-03] MEDS: MAGNESIUM HYDROXIDE 30ML CUP PO ×4 (03:00→21:00)
[2018-04-03] MEDS: HYOSCYAMINE 0.125 MG TAB PO ×4 (03:00→21:00)
[2018-04-03 05:27] LABS: AMMONIA < 9 umol/l (9-30)
[2018-04-03 05:27] LABS: ABNORMAL IP MESSAGE 1; HEMATOCRIT 32.6 % (42.0-52.0); MEAN CORPUSCULAR HEMOGLOBIN 29.1 pg (29.0-33.0); MEAN CORPUSCULAR HGB CONC 36.8 g/dl (32.0-37.0); MEAN CORPUSCULAR VOLUME 79.1 fl (82.0-101.0); MEAN PLATELET VOLUME 11.6 fl (7.4-10.4); NUCLEATED RED BLOOD CELLS% 2.5 /100WBC (0.0-0.0); PLATELET COUNT 128 10^3/UL (140-415); POSITIVE DIFF @See below; RED BLOOD COUNT 4.12 10^6/ul (4.70-6.10); RED CELL DISTRIBUTION WIDTH 24.1 % (11.5-14.5)
[2018-04-03 05:27] LABS: WHITE BLOOD COUNT 5.5 10^3/ul (4.8-10.8)
[2018-04-03 05:36] LABS: ADD MAN DIFF? YES
[2018-04-03 05:40] LABS: INR 2.34; PROTIME 26.3 Sec (11.9-14.9); PT RATIO 2.1
[2018-04-03 05:41] LABS: PARTIAL THROMBOPLASTIN TIME 37.6 Sec (23.0-35.0)
[2018-04-03 05:41] LABS: PHOSPHORUS 3.3 mg/dl (2.5-4.9)
[2018-04-03 05:42] LABS: ALANINE AMINOTRANSFERASE 881 IU/L (13-69); ALBUMIN 2.8 g/dl (3.3-4.9); ALBUMIN/GLOBULIN RATIO 0.84; ALKALINE PHOSPHATASE 598 IU/L (42-121); ANION GAP 14 (5-13); BILIRUBIN,INDIRECT 2.8 mg/dl (0-1.1); BILIRUBIN,TOTAL 11.9 mg/dl (0.2-1.3); BLOOD UREA NITROGEN 47 mg/dl (7-20); CALCIUM 6.7 mg/dl (8.4-10.2); CARBON DIOXIDE 22 mmol/L (21-31); CHLORIDE 106 mmol/L (97-110); CREATININE 1.49 mg/dl (0.61-1.24); Estimated GFR 47 mL/min (>60); GLUCOSE 69 mg/dl (70-220); SODIUM 142 mmol/L (135-144); TOTAL PROTEIN 6.1 g/dl (6.1-8.1)
[2018-04-03] MEDS: PANTOPRAZOLE 40 MG INJ IV (06:00)
[2018-04-03 06:19] LABS: ASPARTATE AMINO TRANSFERASE 2577 IU/L (15-46)
[2018-04-03 07:06] LABS: ANISOCYTOSIS 3+ (0-0); BAND NEUTROPHILS #M 0.4 10^3/ul (0.0-0.6); BAND NEUTROPHILS % (M) 9 % (0-4); BURR CELLS 2+ (0-0); ERYTHROBLAST% (NRBC) (M) 4 % (0-0); LYMPHOCYTES #M 0.5 10^3/ul (0.8-2.9); LYMPHOCYTES % (M) 10 % (15-51); MONOCYTE #M 0.5 10^3/ul (0.3-0.9); MONOCYTES % (M) 10 % (0-11); PLATELET ESTIMATE DECREASED; POIKILOCYTOSIS 1+ (0-0); POLYCHROMASIA 3+ (0-0); SEG NEUT #M 3.9 10^3/ul (1.6-7.5); SEGMENTED NEUTROPHILS (M) % 71 % (39-77); SMUDGE%M 5 % (0-0); TARGET CELLS 2+ (0-0)
[2018-04-03] MEDS: SENNA TAB PO ×2 (09:00→21:00)
[2018-04-03] MEDS: LACTULOSE 30ML CUP PO (09:00)
[2018-04-03] MEDS: SUCRALFATE (100 MG/ML) 10ML CUP PO ×4 (09:00→21:00)
[2018-04-03] MEDS: NYSTATIN SUSP 5 ML CUP PO ×4 (09:00→21:00)
[2018-04-03] MEDS: LORAZEPAM 2 MG INJ IV ×3 (16:42→23:24)
[2018-04-03] MEDS: morphine 2 MG INJ IV ×2 (18:03→21:03)
[2018-04-03] MEDS: DEXTROSE 5%-0.45% NACL 1,000 ML IV (18:35)
[2018-04-03] MEDS ORDERED: ALBUMIN HUMAN 25% 100 ML IV (20:30)
[2018-04-03] MEDS: LATANOPROST 0.005% 2.5 ML OPH BOTH EYES (21:00)
[2018-04-03] MEDS ORDERED: LORAZEPAM 2 MG INJ IV (21:00)
[2018-04-03] MEDS: MINERAL OIL 133 ML ENEMA PR (21:00)
[2018-04-03] MEDS ORDERED: ATROPINE 1% 5 ML OPH SL (21:30)
[2018-04-03] MEDS: morphine (DRIP) 100 MG/100 ML 100 ML IV (23:25)
[2018-04-04] MEDS: HYOSCYAMINE 0.125 MG TAB PO (03:00)
[2018-04-04] MEDS: MAGNESIUM HYDROXIDE 30ML CUP PO (03:00)
[2018-04-04] MEDS: METOCLOPRAMIDE 10 MG INJ IV ×2 (06:00)
[2018-04-04] MEDS: PANTOPRAZOLE 40 MG INJ IV (06:00)
== END 2018-04-04 09:15 | disposition expired | DRG 435 ==
LOC: E/R 17:19 → MS1 03-31 22:44
DX: C78.7 Secondary malignant neoplasm of liver and intrahepatic bile duct (principal); E43 Unspecified severe protein-calorie malnutrition; K83.1 Obstruction of bile duct; C7A.8 Other malignant neuroendocrine tumors; C34.90 Malignant neoplasm of unspecified part of unspecified bronchus or lung; E72.20 Disorder of urea cycle metabolism, unspecified; E87.2 Acidosis; D68.9 Coagulation defect, unspecified; R18.8 Other ascites; Z68.1 Body mass index [BMI] 19.9 or less, adult; D68.8 Other specified coagulation defects; I95.9 Hypotension, unspecified; D69.59 Other secondary thrombocytopenia; R13.10 Dysphagia, unspecified; R62.7 Adult failure to thrive; K59.09 Other constipation; Z66 Do not resuscitate; I46.9 Cardiac arrest, cause unspecified; Z85.07 Personal history of malignant neoplasm of pancreas
CPT/HCPCS: 36415; 71045; 76705; 80053; 82140; 83036; 83605; 83690; 83735; 84100; 84443; 84484; 85025; 85610; 85730; 87040; 87081; 92610; 93005; 99285-25